=== PATIENT | female | born 1950 | race Caucasian/White ===

== ENCOUNTER 2022-02-26 13:01 | Inpatient (IN) ==
[2022-02-26] MEDS ORDERED: MAGNESIUM SULFATE 2 GM/50 ML BAG IV PRN (13:44)
[2022-02-26] MEDS ORDERED: DEXTROSE 31 GM ORAL.SUSP PO PRN (13:44)
[2022-02-26] MEDS ORDERED: DEXTROSE 50% 50 ML VIAL IV PRN (13:44)
[2022-02-26] MEDS ORDERED: POLYETHYLENE GLYCOL 3350 17 GM PACKET PO PRN (13:44)
[2022-02-26] MEDS ORDERED: ONDANSETRON 4 MG/2 ML VIAL IV PRN (13:44)
[2022-02-26] MEDS ORDERED: SENNOSIDES 1 TABLET PO PRN (13:44)
[2022-02-26] MEDS ORDERED: POTASSIUM CHLORIDE 40 MEQ in DEXTROSE 5% IN WATER 500 ML IV PRN (13:44)
[2022-02-26] MEDS ORDERED: POTASSIUM CHLORIDE 20 MEQ TABLET PO PRN ×2 (13:44)
--- NOTE | 2022-02-26 13:44 | Internal Med History&Physical ---
HPI History of Present Illness Patient information: Note initiated : 02/26/22 at 1:40 pm Service Date, if different from initiated Date: [] Patient: Joelle Almazan a 71 y/o F admitted on for Ankle Fracture. Chief Complaint: [] History of present illness: Ms. Almazan is a 71 year old F Presents to an outside facility after falling while walking up the stairs holding a cup of coffee, tripping. Immediate pain to the right ankle. She is found to have a severely comminuted right ankle fracture. Dr. Álvarez was contacted and patient was transferred to [facility]. Patient did have a drop in her blood pressures at the outside facility that was attributed to combination of volume depletion and 4mg IV morphine. Patient blood pressure responded to IV fluid boluses. Review of Systems: Positives as above. Denies headache/fever/chills/nausea/vomiting/chest or abdominal pain/cough/dyspnea/diarrhea. Remaining 10 point review of system reviewed negative PFSH PFSH All Active Problems (Updated 06/26/21 @ 13:29 by Elzbieta Vora) Other low back pain (Acute) Spinal stenosis, lumbar region with neurogenic claudication (Acute) Radiculopathy of lumbar region (Acute) History of tobacco use (Chronic) Sciatica (Chronic) Right hip pain (Chronic) RLS (restless legs syndrome) (Chronic) Postmenopausal HRT (hormone replacement therapy) (Chronic) Occlusion and stenosis of unspecified carotid artery (Chronic) Lumbar pain (Chronic) HTN (hypertension) (Chronic) GERD (gastroesophageal reflux disease) (Chronic) Female stress incontinence (Chronic) Familial hypercholesterolemia (Chronic) Diabetes mellitus, type II (Chronic) Atherosclerosis of [place] coronary artery (Chronic) Low back pain with radiation (Chronic) Medical History (Updated 06/26/21 @ 13:29 by Elzbieta Vora) Atherosclerosis of [place] coronary artery Diabetes mellitus, type II Familial hypercholesterolemia Female stress incontinence GERD (gastroesophageal reflux disease) History of tobacco use HTN (hypertension) Low back pain with radiation down right leg Lumbar pain Occlusion and stenosis of unspecified carotid artery Postmenopausal HRT (hormone replacement therapy) Right hip pain RLS (restless legs syndrome) Sciatica Surgical History (Updated 03/13/21 @ 15:30 by Jillian Do) History of appendectomy (~1971) History of colonoscopy (~12/2014) 07/15/2009 History of exploratory laparotomy History of hysterectomy (~1982) History of left heart catheterization History of neck surgery Family History (Updated 03/13/21 @ 15:31 by Jillian Do) Brother Alzheimer's disease Cancer Alcohol abuse Sister Cancer x2 Diabetes mellitus, type II x2 Alcohol abuse Father Myocardial infarction Alcohol abuse Mother Alcohol abuse Social History (Updated 03/13/21 @ 15:31 by Jillian Do) household members: spouse and family housing: house marital status: education level: high school occupational status: retired smoking status: Former smoker alcohol intake frequency: a few times a month substance use type: does not use MEDS/ALLERGIES Home Medications and Allergies Home Medications Medication Instructions Recorded Confirmed Type amitriptyline 25 mg tablet 25 mg PO QDAY 03/13/21 06/26/21 History aspirin 81 mg capsule 81 mg PO QDAY 03/13/21 06/26/21 History atorvastatin 40 mg tablet 40 mg PO QDAY 03/13/21 06/26/21 History celecoxib 200 mg capsule 200 mg PO QDAY 03/13/21 06/26/21 History cholecalciferol (vitamin D3) 75 75 mcg PO QDAY 03/13/21 06/26/21 History mcg (3,000 unit) tablet digoxin 125 mcg (0.125 mg) tablet 125 mcg PO QDAY 03/13/21 06/26/21 History diltiazem HCl 90 mg tablet 180 mg PO QDAY 03/13/21 06/26/21 History lisinopril 2.5 mg tablet 2.5 mg PO QDAY 03/13/21 06/26/21 History magnesium 30 mg tablet 30 mg PO QDAY 03/13/21 06/26/21 History metformin 500 mg tablet 500 mg PO BID 03/13/21 06/26/21 History metoprolol tartrate 25 mg tablet 25 mg PO QDAY 03/13/21 06/26/21 History omeprazole 10 mg capsule,delayed 10 mg PO QDAY 03/13/21 06/26/21 History release oxybutynin chloride 5 mg tablet 5 mg PO QDAY 03/13/21 06/26/21 History ropinirole 4 mg tablet 4 mg PO QDAY 03/13/21 06/26/21 History rivaroxaban 10 mg tablet (Xarelto) 10 mg PO QDAY 06/26/21 06/26/21 History Allergies Allergy/AdvReac Type Severity Reaction Status Date / Time Penicillins [PENICILLINS] Allergy Mild Rash Unverified 02/26/22 13:48 EXAM Constitutional Exam: General: Alert, Awake, No acute Distress, obesity Eyes/N/T: EOMI, PERRL, Head/Neck: neck supple, normocephalic atraumatic CV: RRR, No murmurs, normal s1/s2 Pulm: Clear b/l, no wheezing/rhonchi/rales Abd: soft, nontender, +BS x4 Ext: no clubbing/cyanosis/edema, right lower extremity in dressings and splint Neuro: Alert, no focal deficits, moves all extremities, CN 2-12 grossly intact, sensations intact b/l upper/lower Skin: warm/dry A/P Narrative A/P Narrative: A: *Right ankle fracture: *JACKLYN on CKD: *AFib, chronic: On digoxin/diltiazem/Xarelto *DM: *Obesity: BMI *CKD II: *Anemia, chronic: *HTN/HLD: on dilt/bb/acei *GERD: P: -Dr. Álvarez for orthopedic surgery -Pain control -IVF -Continue home digoxin/BB/diltiazem/acei if bp allows -SSI, hold metformin for now -Home medication reconciliation -PT/OT -ppx: SCDs and postop Xarelto when okay with surgery / home ppi Time Spent With Patient Time: Total time spent is greater than 50% in coordination of care (as documented) at patient's floor/unit and/or counseling patient:
[2022-02-26] MEDS ORDERED: 0.9 % SODIUM CHLORIDE 1,000 ML IV ONE (13:45)
[2022-02-26] MEDS: 0.9 % SODIUM CHLORIDE 10 ML SYRINGE IV SCH ×2 (15:56→20:56)
[2022-02-26] MEDS ORDERED: morphine 2 MG/ML VIAL IV PRN (16:12)
[2022-02-26] MEDS: INSULIN LISPRO 1 UNIT/0.01 ML UNIT SQ SCH ×2 (17:11→20:55)
[2022-02-26] MEDS ORDERED: ceFAZolin 2 GM in DEXTROSE 5% IN WATER 50 ML IV SCH (18:30)
[2022-02-26] MEDS: DOCUSATE SODIUM 100 MG CAPSULE PO SCH (20:55)
[2022-02-26] MEDS: HYDROmorphone 1 MG/ML SYRINGE IV PRN (21:12)
[2022-02-26] MEDS: METOPROLOL TARTRATE 5 MG/5 ML VIAL IV PRN (23:48)
[2022-02-27] MEDS: METOPROLOL TARTRATE 5 MG/5 ML VIAL IV SCH ×4 (01:04→01:18)
[2022-02-27] MEDS: METOPROLOL TARTRATE 5 MG/5 ML VIAL IV PRN ×3 (03:23→07:36)
[2022-02-27] MEDS: 0.9 % SODIUM CHLORIDE 10 ML SYRINGE IV SCH ×3 (06:07→21:20)
--- NOTE | 2022-02-27 06:44 | Consultation ---
DATE OF CONSULTATION: 02/26/2022 HISTORY OF PRESENT ILLNESS: A 71-year-old female with a same level fall when going up stairs, had a twisting injury to the ankle and sustained an immediate deformity, was seen in the emergency room and diagnosed with bimalleolar ankle fracture. She gives a good history of the event, did not lose consciousness, did not hit her head, has a bimalleolar ankle fracture dislocation that was treated with closed reduction and then transferred here to the hospital at [facility] for further care. She is on __xeralto__ that will need to be stopped at least 24 hours prior to any surgery, possible 48 hours. The patient is a moderate risk for cardiac event as she has atrial fibrillation. She is a 71-year-old female who cares for her and [id number]. The more recently had a kidney and stomach surgery. He denies headaches, nausea, or vomiting. PAST MEDICAL HISTORY: Significant for lower back pain, spinal stenosis with neurogenic claudication and radiculopathy, lumbar pain, chronic pain syndrome, diabetes type 2. MEDICATIONS: Includes amitriptyline, aspirin, atorvastatin, Celebrex, digoxin, lisinopril, metformin, magnesium, omeprazole. She does take Xarelto as a blood thinner. ALLERGIES: PENICILLIN CAUSES MILD RASH, NO SHORTNESS OF BREATH. PHYSICAL EXAMINATION: GENERAL: Very pleasant elderly 71-year-old female with excellent history of the events. Her pain is controlled and seems quite comfortable, is able to eat, drink without nausea or vomiting. EYES: Her extraocular movements intact. NECK: Supple, nontender. CARDIOVASCULAR: Regular rate and rhythm. No murmurs. Normal S1 and S2. PULMONARY: Clear to auscultation without rhonchi, rales or shortness of breath. ABDOMEN: Soft, nontender. EXTREMITIES: Right leg is in a posterior splint with good capillary refill. NEUROLOGIC: She moves her eyes without difficulty. Tongue is midline. SKIN: Warm. Good capillary refill into the foot. IMAGING: X-rays of the right ankle show right ankle bimalleolar ankle fracture with dislocation. ASSESSMENT AND PLAN: Time spent with the patient was approximately 15 minutes. Complications were none. Risks and benefits of the surgery were explained. We will try to proceed tomorrow afternoon that would probably be 30 hours as her last dose of Xarelto was last night, which is almost 24 hours at this point. We will proceed once time is available and surgery. RBH:sawyer Job ID: [id number] Doc ID: [id number] Allan Munoz MD [facility]
[2022-02-27 07:20] LABS: Basophils # (Auto) 0.07 K/mcL (0.00-0.30); Basophils % (Auto) 0.6 % (0.0-2.0); Eosinophils # (Auto) 0.16 K/mcL (0.00-0.70); Eosinophils % (Auto) 1.4 % (0.0-7.0); Hematocrit 36.6 % (34.1-44.9); Hemoglobin 11.1 g/dL (11.2-15.7); Lymphocytes # (Auto) 1.66 K/mcL (1.50-4.80); Lymphocytes % (Auto) 14.1 % (15.5-49.0); Mean Cell Volume 97.9 fL (80.0-100.0); Mean Corpuscular HGB Conc 30.3 g/dL (31.0-36.0); Mean Platelet Volume 10.9 fL (8.8-12.5); Monocytes # (Auto) 1.15 K/mcL (0.10-0.90); Monocytes % (Auto) 9.8 % (1.0-12.0); Neutrophils % (Auto) 73.3 % (38.0-78.0); Platelet Count 236 K/mcL (140-440); RBC 3.74 M/mcL (3.59-5.38); Red Cell Distribution Width 15.5 % (11.5-14.5); WBC 11.8 K/mcL (4.5-11.0)
[2022-02-27 07:50] LABS: ALT/SGPT 16 U/L (<40); AST/SGOT 19 U/L (<32); Albumin 4.1 gm/dL (3.2-5.2); Albumin/Globulin Ratio 1.3 (1.0-2.3); Alkaline Phosphatase 131 U/L (39-117); Bilirubin,Direct < 0.2 mg/dL (0-0.3); Bilirubin,Total 0.6 mg/dL (0.1-1.0); Blood Urea Nitrogen 23 mg/dL (8-23); Calcium 9.1 mg/dL (8.6-10.4); Carbon Dioxide 27 mmol/L (22-30); Chloride 106 mmol/L (96-108); Globulin 3.2 gm/dL (2.2-3.7); Glomerular Filtration Rate 45; Glucose 165 mg/dL (70-105); Lactate Dehydrogenase 204 U/L (135-225); Phosphorous 3.5 mg/dL (2.5-4.5); Triglycerides 117 mg/dL (<150); Uric Acid 12.2 mg/dL (2.5-8.0)
--- NOTE | 2022-02-27 08:22 | Internal Med Progress Note ---
SUBJECTIVE Subjective Patient information: Note initiated : 02/27/22 at 8:18 am Service Date, if different from initiated Date: [] Patient: Joelle Almazan a 71 y/o F admitted on 02/26/22 for Ankle Fracture-JACKLYN. Chief Complaint: [] Interval history: History of present illness: Ms. Almazan is a 71 year old F Presents to an outside facility after falling while walking up the stairs holding a cup of coffee, tripping. Immediate pain to the right ankle. She is found to have a severely comminuted right ankle fracture. Dr. Álvarez was contacted and patient was transferred to [facility]. Patient did have a drop in her blood pressures at the outside facility that was attributed to combination of volume depletion and 4mg IV morphine. Patient blood pressure responded to IV fluid boluses. 02/27 this morning she complained of ankle pain otherwise no other complaints. Testing was little elevated and her heart rate is elevated last night she got s everal doses of Lopressor. Ordered IV dig as she is n.p.o. if poorly controlled will start diltiazem drip. Later in the morning she developed left-sided chest pain under her left breast achy/pressure and nonradiating. EKG A. fib and difficult to read baseline but no ST elevation. Some nonspecific ST changes noted. Rate of 132. Troponin pending and chest x-ray pending. Review of Systems: denies headache/fever/chills/nausea/vomiting/abdominal pain/cough/dyspnea/diarrhea. Otherwise see above. Constitutional Vitals: Vital Signs Temp Pulse Resp BP Pulse Ox O2 Del Method O2 Flow Rate 98.6 F 127 H 14 116/78 95 2.5 02/27/22 07:47 02/27/22 07:47 02/27/22 07:47 02/27/22 07:47 02/27/22 07:47 02/27/22 07:47 02/27/22 07:47 Period Temp Pulse Resp BP Sys/Peralta Pulse Ox O2 Del Method O2 Flow Rate Last 24 Hr 97.7 F-98.6 F 89-137 - 111-162/77-107 91-97 Nasal Cannula- Nasal Cannula 2.5-3 Intake and Output 02/26/22 02/27/22 02/27/22 21:59 05:59 13:59 Intake Total 300 240 Output Total 310 1350 Balance -10 -1110 Weight 93.894 kg Intake & Output: Intake & Output 02/26/22 02/27/22 02/27/22 21:59 05:59 13:59 Intake Total 300 240 Output Total 310 1350 Balance -10 -1110 Weight 93.894 kg Intake: Oral 300 240 Output: Urine Catheter Amount 310 1350 Other: Meal Dinner Percent of Meal Consumed 100% Feeding Ability Independent Urine Appearance Uretheral (Rizzo) Clear Urine Color Yellow Uretheral (Rizzo) Yellow Pale Exam: General: Alert, Awake, , obesity Eyes/N/T: EOMI, , Head/Neck: neck supple, CV: Tacky and irregular, No murmurs, Pulm: Clear b/l, no wheezing/rhonchi/rales Abd: soft, nontender, +BS x4 Ext: no clubbing/cyanosis/edema, right lower extremity in dressings and splint Neuro: Alert, no focal deficits, moves all extremities, Skin: warm/dry OBJ DATA Labs CBC & Chem 7: 02/27/22 06:26 02/27/22 06:26 Labs: Abnormal Lab Results 02/27/22 02/27/22 06:26 06:26 WBC 11.8 H Hgb 11.1 L MCHC 30.3 L RDW 15.5 H Immature Gran % (Auto) 0.8 H Lymph % (Auto) 14.1 L Dodge # (Auto) 1.15 H Immature Gran # 0.09 H Absolute Neutrophils 8.66 H Potassium 5.5 H Creatinine 1.2 H Glucose 165 H Uric Acid 12.2 H GGT 39 H Alkaline Phosphatase 131 H Meds: Medications Hydrocodone Bitart/Acetaminophen (Hydrocodone/Apap 5/325mg Tablet) 1 tab PO Q4HP PRN; Protocol PRN Reason: Per Pain Protocol Albuterol/Ipratropium (Ipratropium/Albuterol 3 Ml Ampul.Neb) 3 ml NEB Q4HP PRN PRN Reason: Shortness Of Breath Dextrose (Dextrose 50% 50 Ml Vial) 0 ml IV UD PRN PRN Reason: Per Sliding Scale Diagnostic Test (Pha) (Accu-Chek 1 Each Strip) 1 each FS ACHS AZAR Last Admin: 02/26/22 20:55 Dose: 1 each Docusate Sodium (Docusate Sodium 100 Mg Capsule) 100 mg PO BID [facility] Last Admin: 02/26/22 20:55 Dose: 100 mg Glucose (Dextrose 31 Gm Oral.Susp) 15 gm PO PRN PRN PRN Reason: Hypoglycemia Hydromorphone HCl (Hydromorphone 1 Mg/Ml Syringe) 0 mg IV Q2HP PRN; Protocol PRN Reason: Per Pain Protocol Last Admin: 02/26/22 21:12 Dose: 1 mg Potassium Chloride 40 meq/ (Dextrose) 520 mls @ 130 mls/hr IV UD PRN PRN Reason: Potassium < 3 Magnesium Sulfate (Magnesium Sulfate) 2 gm in 50 mls @ 50 mls/hr IV UD PRN PRN Reason: Magnesium </= 1.6 Cefazolin Sodium 2 gm/ (Dextrose) 50 mls @ 100 mls/hr IV PREOP [facility]; Protocol Stop: 02/27/22 14:00 Last Admin: 02/27/22 01:23 Dose: Not Given Insulin Human Lispro (Insulin Lispro 1 Unit/0.01 Ml Unit) 0 unit SQ ACHS [facility]; Protocol Last Admin: 02/26/22 20:55 Dose: 2 units Metoprolol Tartrate (Metoprolol Tartrate 5 Mg/5 Ml Vial) 5 mg IV Q2HP PRN PRN Reason: Tachyarrhythmias HR>110 Last Admin: 02/27/22 07:36 Dose: 5 mg Ondansetron HCl (Ondansetron 4 Mg/2 Ml Vial) 4 mg IV Q4HP PRN PRN Reason: Nausea And Vomiting Last Admin: 02/26/22 16:48 Dose: 4 mg Polyethylene Glycol (Polyethylene Glycol 3350 17 Gm Packet) 17 gm PO DAILYP PRN PRN Reason: Constipation Potassium Chloride (Potassium Chloride 20 Meq Tablet) 40 meq PO UD PRN PRN Reason: Potssium is 3-3.5 Potassium Chloride (Potassium Chloride 20 Meq Tablet) 40 meq PO UD PRN PRN Reason: Potassium < 3 Scopolamine (Scopolamine 1 Patch Patch) 1 patch TOPICAL PREOP PRN PRN Reason: Nausea And Vomiting Stop: 02/27/22 23:59 Senna (Sennosides 1 Tablet) 2 tab PO DAILYP PRN PRN Reason: Constipation Sodium Chloride (0.9 % Sodium Chloride 10 Ml Syringe) 10 ml IV Q8 [facility] Last Admin: 02/27/22 06:07 Dose: Not Given A/P Narrative A/P Narrative: A: *AFib w/RVR, chronic: On digoxin/diltiazem/Xarelto - *Right ankle fracture: *JACKLYN on CKD: *h/o CAD: on statin/rivaroxaban -SPECT in January with good EF and was low risk study *Hyperkalemia, mild: treat and follow-up prior to surgery *Volume depletion: *JACKLYN on CKD III: *DM: *Obesity: BMI *CKD II: *Anemia, chronic: *HTN/HLD: on dilt/bb/acei *GERD: P: -transfer back to PCU, troponin and cxr pending -rate control -f/u potassium -Dr. Álvarez for orthopedic surgery -Pain control -tele -IVF, f/u renal -Continue home digoxin/BB/diltiazem, hold acei for hyperkalemia/jacklyn -SSI, hold metformin for now -PT/OT -ppx: SCDs and postop Xarelto when okay with surgery / home ppi Time Spent With Patient Time: Total time spent is greater than 50% in coordination of care (as documented) at patient's floor/unit and/or counseling patient: Critical Care Time: Yes Total Critical Care Time: 45 QUALITY VTE Deep Vein Thrombosis/Pulmonary Embolism Present on Admission: No
[2022-02-27] MEDS ORDERED: 0.9 % SODIUM CHLORIDE 1,000 ML IV ONE (08:25)
[2022-02-27] MEDS ORDERED: DIGOXIN 500 MCG/2 ML AMPUL IV SCH (08:30)
[2022-02-27] MEDS ORDERED: INSULIN REGULAR, HUMAN 1 UNIT/0.01 ML UNIT IV SCH (08:30)
[2022-02-27] MEDS ORDERED: DEXTROSE 50% 50 ML VIAL IV SCH (08:30)
[2022-02-27] MEDS: DOCUSATE SODIUM 100 MG CAPSULE PO SCH ×2 (08:37→20:27)
[2022-02-27] MEDS: INSULIN LISPRO 1 UNIT/0.01 ML UNIT SQ SCH ×4 (08:48→21:18)
[2022-02-27] MEDS ORDERED: ASPIRIN 81 MG TAB.CHEW CHEWED ONE (09:17)
[2022-02-27] MEDS ORDERED: NITROGLYCERIN 0.4 MG TAB.SUBL SL PRN (09:17)
[2022-02-27] MEDS: HYDROmorphone 1 MG/ML SYRINGE IV PRN ×4 (09:18→19:42)
[2022-02-27] MEDS ORDERED: DEXTROSE 50% 50 ML SYRINGE IV SCH (09:20)
[2022-02-27] MEDS: DILTIAZEM 180 MG CAP.XL.24H PO SCH (09:24)
[2022-02-27] MEDS ORDERED: 0.9 % SODIUM CHLORIDE 1,000 ML IV SCH (09:30)
--- NOTE | 2022-02-27 09:41 | XRay Report ---
CLINICAL INFORMATION: Chest pain COMPARISON: None. TECHNIQUE: Portable FINDINGS: The heart is mildly enlarged. Mediastinum and pulmonary vessels are normal. Minor bibasilar atelectasis noted. No effusion. IMPRESSION: Mild cardiomegaly. No acute disease Interpreted and Authenticated by: Grayson Ramos 02/27/22
--- NOTE | 2022-02-27 09:57 | EKG ---
[facility] Test Date: 2022-02-27 Pat Name: Joelle Almazan Department: [facility] Room: 126 Gender: Female Cardroom Pl[employer] Card Grader: : [id number] Requested By: Ponce Barrett Order Number: [id number] Reading MD: Grayson Valverde M.D. Measurements Intervals Hugo Rate: 132 P: DE: QRS: 83 QRSD: 97 T: -25 QT: 247 QTc: 366 Interpretive Statements Atrial fibrillation with RVR Ventricular premature complex Low voltage, extremity and precordial leads Abnormal R-wave progression, late transition Borderline ST depression, diffuse leads Electronically Signed On 02-27-2022 9:56:45 PDT by Grayson Valverde M.D. /[facility] [place]//[id number]
[2022-02-27 10:09] LABS: Basophils # (Auto) 0.05 K/mcL (0.00-0.30); Basophils % (Auto) 0.5 % (0.0-2.0); Eosinophils # (Auto) 0.06 K/mcL (0.00-0.70); Eosinophils % (Auto) 0.6 % (0.0-7.0); Hematocrit 34.6 % (34.1-44.9); Hemoglobin 10.4 g/dL (11.2-15.7); Lymphocytes # (Auto) 1.17 K/mcL (1.50-4.80); Lymphocytes % (Auto) 10.8 % (15.5-49.0); Mean Corpuscular HGB Conc 30.1 g/dL (31.0-36.0); Mean Platelet Volume 11.3 fL (8.8-12.5); Monocytes % (Auto) 4.6 % (1.0-12.0); Neutrophils % (Auto) 82.9 % (38.0-78.0); Platelet Count 226 K/mcL (140-440); RBC 3.53 M/mcL (3.59-5.38); Red Cell Distribution Width 15.6 % (11.5-14.5); WBC 10.8 K/mcL (4.5-11.0)
[2022-02-27] MEDS: METOPROLOL SUCCINATE 50 MG TAB.XL.24H PO SCH ×2 (10:24→20:27)
[2022-02-27 10:48] LABS: Creatine Kinase MB 2.1 ng/mL (<3.7)
[2022-02-27 10:49] LABS: ALT/SGPT 15 U/L (<40); AST/SGOT 18 U/L (<32); Albumin 4.1 gm/dL (3.2-5.2); Albumin/Globulin Ratio 1.2 (1.0-2.3); Alkaline Phosphatase 124 U/L (39-117); Bilirubin,Total 0.7 mg/dL (0.1-1.0); Blood Urea Nitrogen 24 mg/dL (8-23); Calcium 9.6 mg/dL (8.6-10.4); Carbon Dioxide 25 mmol/L (22-30); Chloride 107 mmol/L (96-108); Creatine Kinase 166 U/L (24-170); Globulin 3.4 gm/dL (2.2-3.7); Glomerular Filtration Rate 45; Glucose 185 mg/dL (70-105)
[2022-02-27] MEDS ORDERED: ASPIRIN 81 MG TAB.CHEW PO ONE (11:00)
[2022-02-27] MEDS: CYCLOSPORINE 0.05% OP SCH (11:06)
[2022-02-27] MEDS: OMEPRAZOLE 20 MG CAPSULE PO SCH (11:19)
[2022-02-27] MEDS: OXYBUTYNIN CHLORIDE 5 MG TABLET PO SCH ×2 (11:20→20:26)
[2022-02-27] MEDS: GABAPENTIN 100 MG CAPSULE PO SCH ×3 (11:20→20:27)
[2022-02-27] MEDS: rOPINIRole 1 MG TABLET PO SCH (11:20)
[2022-02-27] MEDS: DILTIAZEM 125 MG in DEXTROSE 5% IN WATER 100 ML IV SCH ×2 (11:26→20:29)
[2022-02-27] MEDS: BACLOFEN 10 MG TABLET PO PRN ×2 (11:59→20:27)
[2022-02-27] MEDS ORDERED: SCOPOLAMINE 1 PATCH PATCH TOPICAL PRN (12:00)
[2022-02-27] MEDS ORDERED: ENOXAPARIN 100 MG/ML SYRINGE SQ SCH (12:00)
[2022-02-27 12:56] LABS: POC Calcium, Ionized 1.26 (1.16-1.32); POC Creatinine 1.2 (0.6-1.2); POC Potassium 4.9 (3.3-5.1)
[2022-02-27] MEDS ORDERED: DEXTROSE 5% IN WATER 250 ML IV ONE (13:43)
[2022-02-27] MEDS ORDERED: HYDROmorphone 1 MG/ML SYRINGE IV PRN (14:03)
[2022-02-27] MEDS: HYDROcodone/APAP 5/325MG TABLET PO PRN ×2 (15:31→20:26)
[2022-02-27] MEDS: AMITRIPTYLINE 25 MG TABLET PO SCH (20:27)
[2022-02-27] MEDS: ATORVASTATIN 40 MG TABLET PO SCH (20:27)
[2022-02-28] MEDS: HYDROmorphone 1 MG/ML SYRINGE IV PRN ×2 (03:20→06:43)
[2022-02-28] MEDS: 0.9 % SODIUM CHLORIDE 10 ML SYRINGE IV SCH ×5 (05:26→23:23)
[2022-02-28 06:45] LABS: Basophils # (Auto) 0.05 K/mcL (0.00-0.30); Basophils % (Auto) 0.4 % (0.0-2.0); Eosinophils # (Auto) 0.07 K/mcL (0.00-0.70); Eosinophils % (Auto) 0.6 % (0.0-7.0); Hematocrit 34.5 % (34.1-44.9); Hemoglobin 10.5 g/dL (11.2-15.7); Lymphocytes # (Auto) 1.04 K/mcL (1.50-4.80); Lymphocytes % (Auto) 8.4 % (15.5-49.0); Mean Corpuscular HGB Conc 30.4 g/dL (31.0-36.0); Mean Platelet Volume 11.7 fL (8.8-12.5); Monocytes # (Auto) 1.22 K/mcL (0.10-0.90); Monocytes % (Auto) 9.9 % (1.0-12.0); Neutrophils % (Auto) 79.9 % (38.0-78.0); Platelet Count 180 K/mcL (140-440); RBC 3.52 M/mcL (3.59-5.38); Red Cell Distribution Width 15.4 % (11.5-14.5); WBC 12.4 K/mcL (4.5-11.0)
[2022-02-28 07:11] LABS: ALT/SGPT 13 U/L (<40); AST/SGOT 17 U/L (<32); Albumin 3.7 gm/dL (3.2-5.2); Albumin/Globulin Ratio 1.2 (1.0-2.3); Alkaline Phosphatase 115 U/L (39-117); Bilirubin,Direct 0.5 mg/dL (<0.3); Bilirubin,Total 1.1 mg/dL (0.1-1.0); Blood Urea Nitrogen 20 mg/dL (8-23); Calcium 9.7 mg/dL (8.6-10.4); Carbon Dioxide 28 mmol/L (22-30); Chloride 107 mmol/L (96-108); Globulin 3.1 gm/dL (2.2-3.7); Glomerular Filtration Rate 56; Glucose 170 mg/dL (70-105); Lactate Dehydrogenase 179 U/L (135-225); Triglycerides 100 mg/dL (<150)
--- NOTE | 2022-02-28 08:13 | Internal Med Progress Note ---
SUBJECTIVE Subjective Patient information: Note initiated : 02/28/22 at 8:11 am Service Date, if different from initiated Date: [] Patient: Joelle Almazan a 71 y/o F admitted on 02/26/22 for Ankle Fracture-JACKLYN. Chief Complaint: [] Interval history: History of present illness: Ms. Almazan is a 71 year old F Presents to an outside facility after falling while walking up the stairs holding a cup of coffee, tripping. Immediate pain to the right ankle. She is found to have a severely comminuted right ankle fracture. Dr. Álvarez was contacted and patient was transferred to [facility]. Patient did have a drop in her blood pressures at the outside facility that was attributed to combination of volume depletion and 4mg IV morphine. Patient blood pressure responded to IV fluid boluses. 02/27 this morning she complained of ankle pain otherwise no other complaints. Testing was little elevated and her heart rate is elevated last night she got s everal doses of Lopressor. Ordered IV dig as she is n.p.o. if poorly controlled will start diltiazem drip. Later in the morning she developed left-sided chest pain under her left breast achy/pressure and nonradiating. EKG A. fib and difficult to read baseline but no ST elevation. Some nonspecific ST changes noted. Rate of 132. Troponin pending and chest x-ray pending. 02/28 Patient on BiPAP overnight for CO2 retention likely secondary to sedation. Patient seems to be externally really sensitive to narcotics. DC'd low-dose Dilaudid altogether. We will try IV Tylenol and as needed [place]'s if still uncontrolled. A. fib rate better controlled. Potassium improved as well as hyponatremia. Review of Systems: denies headache/fever/chills/nausea/vomiting/abdominal pain/cough/dyspnea/diar sin. Otherwise see above. Constitutional Vitals: Vital Signs Temp Pulse Resp BP Pulse Ox O2 Del Method O2 Flow Rate 98.2 F 94 H 14 100/67 89 L 2 02/28/22 04:00 02/28/22 07:01 02/28/22 07:01 02/28/22 07:01 02/28/22 07:01 02/28/22 05:01 02/27/22 11:31 Period Temp Pulse Resp BP Sys/Peralta Pulse Ox O2 Del Method O2 Flow Rate Last 24 Hr 97.0 F-98.5 F 62-145 10-25 75-132/38-81 82-100 BiPAP-Oxymask 2-5 Intake and Output 02/27/22 02/28/22 02/28/22 21:59 05:59 13:59 Intake Total 1280 Output Total 775 850 Balance 505 -850 Weight 93.123 kg Intake & Output: Intake & Output 02/27/22 02/28/22 02/28/22 21:59 05:59 13:59 Intake Total 1280 Output Total 775 850 Balance 505 -850 Weight 93.123 kg Intake: IV 800 Sodium Chloride 0.9% 1,000 ml @ 550 100 mls/hr IV .Q10H ONE Rx#: [id number] Dextrose 5% in Water 250 ml @ 250 100 mls/hr IV .Q2H30M ONE Rx#: [id number] Oral 480 Output: Urine Catheter Amount 775 850 Other: Urine Appearance Clear Clear Urine Color Dark Yellow Light Rama Urine Odor Normal Exam: General: Awakens, no acute distress, obesity Eyes/N/T: EOMI, , Head/Neck: neck supple, CV: irregular, No murmurs, Pulm: mild rhonchi, no wheezing Abd: soft, nontender, +BS x4 Ext: no clubbing/cyanosis/edema, right lower extremity in dressings and splint Neuro: Drowsy but awakens no focal deficits, moves all extremities, Skin: warm/dry OBJ DATA Labs CBC & Chem 7: 02/28/22 05:30 02/28/22 05:30 Labs: Abnormal Lab Results 02/28/22 02/28/22 02/27/22 05:30 05:30 14:17 WBC 12.4 H RBC 3.52 L Hgb 10.5 L POC Hct MCHC 30.4 L RDW 15.4 H Immature Gran % (Auto) 0.8 H Neut % (Auto) 79.9 H Lymph % (Auto) 8.4 L Lymph # (Auto) 1.04 L Cottle # (Auto) 1.22 H Immature Gran # 0.10 H Absolute Neutrophils 9.89 H POC pH 7.25 L POC pCO2 70.8 H* POC pO2 76 L POC HCO3 31.0 H POC Total CO2 33.0 H POC ABG Base Excess 4.0 H ABG Lactic Acid 0.4 L Hgb O2 Saturation 92.0 L POC Sodium Potassium Anion Gap 7.0 L POC BUN BUN Creatinine Glucose 170 H POC Glucose Uric Acid 11.0 H Total Bilirubin 1.1 H Direct Bilirubin 0.5 H GGT 40 H Alkaline Phosphatase 02/27/22 02/27/22 02/27/22 12:42 10:17 09:39 WBC RBC Hgb POC Hct 32.0 L MCHC RDW Immature Gran % (Auto) Neut % (Auto) Lymph % (Auto) Lymph # (Auto) Cottle # (Auto) Immature Gran # Absolute Neutrophils POC pH 7.22 L POC pCO2 71.9 H* POC pO2 76 L POC HCO3 29.7 H POC Total CO2 32.0 H POC ABG Base Excess ABG Lactic Acid Hgb O2 Saturation 91.0 L POC Sodium 146 H Potassium 5.3 H Anion Gap POC BUN 26 H BUN 24 H Creatinine 1.2 H Glucose 185 H POC Glucose 139 H Uric Acid Total Bilirubin Direct Bilirubin GGT Alkaline Phosphatase 124 H 02/27/22 02/27/22 02/27/22 09:17 06:26 06:26 WBC 11.8 H RBC 3.53 L Hgb 10.4 L 11.1 L POC Hct MCHC 30.1 L 30.3 L RDW 15.6 H 15.5 H Immature Gran % (Auto) 0.6 H 0.8 H Neut % (Auto) 82.9 H Lymph % (Auto) 10.8 L 14.1 L Lymph # (Auto) 1.17 L Cottle # (Auto) 1.15 H Immature Gran # 0.07 H 0.09 H Absolute Neutrophils 8.95 H 8.66 H POC pH POC pCO2 POC pO2 POC HCO3 POC Total CO2 POC ABG Base Excess ABG Lactic Acid Hgb O2 Saturation POC Sodium Potassium 5.5 H Anion Gap POC BUN BUN Creatinine 1.2 H Glucose 165 H POC Glucose Uric Acid 12.2 H Total Bilirubin Direct Bilirubin GGT 39 H Alkaline Phosphatase 131 H Meds: Medications Hydrocodone Bitart/Acetaminophen (Hydrocodone/Apap 5/325mg Tablet) 1 tab PO Q4HP PRN; Protocol PRN Reason: Per Pain Protocol Last Admin: 02/27/22 20:26 Dose: 1 tab Albuterol/Ipratropium (Ipratropium/Albuterol 3 Ml Ampul.Neb) 3 ml NEB Q4HP PRN PRN Reason: Shortness Of Breath Amitriptyline HCl (Amitriptyline 25 Mg Tablet) 25 mg PO HS [facility] Last Admin: 02/27/22 20:27 Dose: 25 mg Atorvastatin Calcium (Atorvastatin 40 Mg Tablet) 40 mg PO HS [facility] Last Admin: 02/27/22 20:27 Dose: 40 mg Baclofen (Baclofen 10 Mg Tablet) 10 mg PO TIDP PRN PRN Reason: Muscle Spasm Last Admin: 02/27/22 20:27 Dose: 10 mg Dextrose (Dextrose 50% 50 Ml Vial) 0 ml IV UD PRN PRN Reason: Per Sliding Scale Diagnostic Test (Pha) (Accu-Chek 1 Each Strip) 1 each FS ACHS [facility] Last Admin: 02/28/22 07:12 Dose: 1 each Digoxin (Digoxin 125 Mcg Tablet) 125 mcg PO QDAY AZAR Diltiazem HCl (Diltiazem 180 Mg Cap.Xl.24h) 180 mg PO QDAY [facility] Last Admin: 02/27/22 09:24 Dose: 180 mg Docusate Sodium (Docusate Sodium 100 Mg Capsule) 100 mg PO BID [facility] Last Admin: 02/27/22 20:27 Dose: 100 mg Gabapentin (Gabapentin 100 Mg Capsule) 100 mg PO TID [facility] Last Admin: 02/27/22 20:27 Dose: 100 mg Glucose (Dextrose 31 Gm Oral.Susp) 15 gm PO PRN PRN PRN Reason: Hypoglycemia Hydromorphone HCl (Hydromorphone 1 Mg/Ml Syringe) 0 mg IV Q2HP PRN; Protocol PRN Reason: Per Pain Protocol Last Admin: 02/28/22 06:43 Dose: 0.25 mg Potassium Chloride 40 meq/ (Dextrose) 520 mls @ 130 mls/hr IV UD PRN PRN Reason: Potassium < 3 Magnesium Sulfate (Magnesium Sulfate) 2 gm in 50 mls @ 50 mls/hr IV UD PRN PRN Reason: Magnesium </= 1.6 Diltiazem HCl 125 mg/ Dextrose 125 mls @ 5 mls/hr IV Q12H [facility]; Protocol Last Admin: 02/27/22 20:29 Dose: Not Given Insulin Human Lispro (Insulin Lispro 1 Unit/0.01 Ml Unit) 0 unit SQ ACHS [facility]; Protocol Last Admin: 02/27/22 21:18 Dose: Not Given Lisinopril (Lisinopril 10 Mg Tablet) 10 mg PO DAILY [facility] Metoprolol Succinate (Metoprolol Succinate 50 Mg Tab.Xl.24h) 100 mg PO BID [facility] Last Admin: 02/27/22 20:27 Dose: 100 mg Metoprolol Tartrate (Metoprolol Tartrate 5 Mg/5 Ml Vial) 5 mg IV Q2HP PRN PRN Reason: Tachyarrhythmias HR>110 Last Admin: 02/27/22 07:36 Dose: 5 mg Nitroglycerin (Nitroglycerin 0.4 Mg Tab.Subl) 0.4 mg SL Q5M PRN PRN Reason: Chest Pain Last Admin: 02/27/22 09:25 Dose: 0.4 mg Omeprazole (Omeprazole 20 Mg Capsule) 40 mg PO QDAY [facility] Last Admin: 02/27/22 11:19 Dose: 40 mg Ondansetron HCl (Ondansetron 4 Mg/2 Ml Vial) 4 mg IV Q4HP PRN PRN Reason: Nausea And Vomiting Last Admin: 02/26/22 16:48 Dose: 4 mg Oxybutynin Chloride (Oxybutynin Chloride 5 Mg Tablet) 5 mg PO BID [facility] Last Admin: 02/27/22 20:26 Dose: 5 mg (Cyclosporine [ (Restasis] 0.05 %) 1 dose OP DAILY [facility] Last Admin: 02/27/22 11:06 Dose: Not Given Polyethylene Glycol (Polyethylene Glycol 3350 17 Gm Packet) 17 gm PO DAILYP PRN PRN Reason: Constipation Potassium Chloride (Potassium Chloride 20 Meq Tablet) 40 meq PO UD PRN PRN Reason: Potssium is 3-3.5 Potassium Chloride (Potassium Chloride 20 Meq Tablet) 40 meq PO UD PRN PRN Reason: Potassium < 3 Ropinirole HCl (Ropinirole 1 Mg Tablet) 4 mg PO QDAY [facility] Last Admin: 02/27/22 11:20 Dose: 4 mg Senna (Sennosides 1 Tablet) 2 tab PO DAILYP PRN PRN Reason: Constipation Last Admin: 02/27/22 15:31 Dose: 2 tab Sodium Chloride (0.9 % Sodium Chloride 10 Ml Syringe) 10 ml IV Q8 [facility] Last Admin: 02/28/22 05:26 Dose: 10 ml A/P Narrative A/P Narrative: A: *AFib w/RVR, chronic: On digoxin/diltiazem/Xarelto - *Hypercapnia: suspect from sedation -on bipap o/n *Right ankle fracture: *JACKLYN on CKD: improved *h/o CAD: on statin/rivaroxaban -SPECT in January with good EF and was low risk study *Hyperkalemia, mild: treat and follow-up prior to surgery -improved *Volume depletion: improved *JACKLYN on CKD III: *DM: *Obesity: BMI *CKD II: *Anemia, chronic: *HTN/HLD: on dilt/bb/acei *GERD: P: -f/u ABG and remove bipap if appropriate -f/u electrolytes -Dr. Álvarez for orthopedic surgery -Pain control -tele -s/p IVF, f/u renal -Continue home digoxin/BB/diltiazem, hold acei for hyperkalemia/jacklyn and soft BP -SSI, hold metformin for now -PT/OT -ppx: SCDs and postop Xarelto when okay with surgery / home ppi Time Spent With Patient Time: Total time spent is greater than 50% in coordination of care (as documented) at patient's floor/unit and/or counseling patient: Total time spent with greater than 50% in coordination of care (as documented) at patient's floor/unit and/or counseling patient:: 35 - 50 minutes QUALITY VTE Deep Vein Thrombosis/Pulmonary Embolism Present on Admission: No
[2022-02-28] MEDS: INSULIN LISPRO 1 UNIT/0.01 ML UNIT SQ SCH ×4 (08:38→21:20)
[2022-02-28] MEDS: DILTIAZEM 125 MG in DEXTROSE 5% IN WATER 100 ML IV SCH (08:39)
[2022-02-28] MEDS: ACETAMINOPHEN 1,000 MG/100 ML BAG IV PRN ×2 (09:16→16:54)
[2022-02-28] MEDS ORDERED: 0.9 % SODIUM CHLORIDE 1,000 ML IV ONE (09:52)
[2022-02-28] MEDS: HYDROcodone/APAP 5/325MG TABLET PO PRN ×2 (10:16→18:59)
[2022-02-28] MEDS: DIGOXIN 125 MCG TABLET PO SCH (11:14)
[2022-02-28] MEDS: OXYBUTYNIN CHLORIDE 5 MG TABLET PO SCH ×2 (11:14→20:41)
[2022-02-28] MEDS: GABAPENTIN 100 MG CAPSULE PO SCH ×3 (11:14→20:42)
[2022-02-28] MEDS: DILTIAZEM 180 MG CAP.XL.24H PO SCH (11:14)
[2022-02-28] MEDS: DOCUSATE SODIUM 100 MG CAPSULE PO SCH ×2 (11:14→20:41)
[2022-02-28] MEDS: LISINOPRIL 10 MG TABLET PO SCH (11:15)
[2022-02-28] MEDS: rOPINIRole 1 MG TABLET PO SCH ×2 (11:15→21:35)
[2022-02-28] MEDS: METOPROLOL SUCCINATE 50 MG TAB.XL.24H PO SCH ×2 (11:15→20:41)
[2022-02-28] MEDS: OMEPRAZOLE 20 MG CAPSULE PO SCH (11:15)
[2022-02-28] MEDS: CYCLOSPORINE 0.05% OP SCH (11:15)
[2022-02-28] MEDS ORDERED: ceFAZolin 2 GM in DEXTROSE 5% IN WATER 50 ML IV SCH (13:15)
[2022-02-28] MEDS ORDERED: ROPIVACAINE HCL/PF 20 ML VIAL IJ ONE (13:25)
[2022-02-28] MEDS ORDERED: ONDANSETRON 4 MG/2 ML VIAL ONE (13:25)
[2022-02-28] MEDS ORDERED: MAGNESIUM SULFATE 2 GM/50 ML BAG IV ONE (13:25)
[2022-02-28] MEDS ORDERED: KETAMINE 50 MG/ML Syringe (ANEST) IV ONE (13:25)
[2022-02-28] MEDS ORDERED: fentaNYL 100 MCG/2 ML VIAL IV ONE (13:25)
[2022-02-28] MEDS ORDERED: PROPOFOL 200 MG/20 ML VIAL IV ONE (13:25)
[2022-02-28] MEDS ORDERED: LIDOCAINE HCL/PF 100 MG/5 ML SYRINGE IV ONE (13:25)
[2022-02-28] MEDS ORDERED: DEXAMETHASONE 10 MG/ML VIAL ONE (13:25)
[2022-02-28] MEDS ORDERED: METOPROLOL TARTRATE 5 MG/5 ML VIAL IV ONE (13:25)
[2022-02-28] MEDS ORDERED: KETOROLAC 30 MG/ML VIAL IV PRN (14:03)
[2022-02-28] MEDS ORDERED: ONDANSETRON 4 MG/2 ML VIAL IV PRN (14:03)
[2022-02-28] MEDS ORDERED: diphenhydrAMINE 50 MG/ML VIAL IV PRN (14:03)
[2022-02-28] MEDS ORDERED: MEPERIDINE 25 MG/ML VIAL IV PRN (14:03)
[2022-02-28] MEDS ORDERED: IPRATROPIUM/ALBUTEROL 3 ML AMPUL.NEB NEB PRN (14:03)
[2022-02-28] MEDS ORDERED: LACTATED RINGERS 250 ML IV PRN (14:03)
[2022-02-28] MEDS ORDERED: fentaNYL 100 MCG/2 ML VIAL IV PRN (14:03)
[2022-02-28] MEDS ORDERED: NALOXONE HCL 0.4 MG/ML VIAL IV PRN (14:03)
[2022-02-28] MEDS ORDERED: PROMETHAZINE 25 MG/ML VIAL IV PRN (14:03)
[2022-02-28] MEDS ORDERED: LACTATED RINGERS 1,000 ML IV SCH (14:15)
[2022-02-28] MEDS ORDERED: DILTIAZEM 125 MG in DEXTROSE 5% IN WATER 100 ML IV PRN (14:30)
--- NOTE | 2022-02-28 14:55 | Brief Operative Note ---
Brief Operative Note Date of procedure: 02/28/22 Pre-op diagnosis: Right ankle fx dislocation bimalleolar fx Post-op diagnosis: same Procedure: Right ankle bimallelar orif with syndesmosis screw fix Grafts/Implants: Yes Anesthesia: GETA Findings: above Complications: none Surgeon: Allan Munoz [employer] Underwriter: Arun Arechiga Estimated blood loss (cc): 10 Tourniquet Time (Minutes): 45 Specimens Removed/Pathology: none sent Condition: stable Disposition: PACU
--- NOTE | 2022-02-28 15:40 | XRay Report ---
CLINICAL INFORMATION: ORIF trimalleolar fracture COMPARISON: Preoperative films 02/26/2022 FINDINGS: Spiral fracture of the distal fibular diaphysis with extension to the lateral malleolus as been reduced to anatomic alignment and transfixed by lateral plate and screws. A screw extends across the distal fibula through the syndesmosis into the tibia with stabilization. Two screws transfix a medial malleolar fracture which has been reduced to anatomic alignment. Ankle mortise is congruent with small effusion. IMPRESSION: ORIF malleolar fracture in anatomic alignment Interpreted and Authenticated by: Grayson Ramos 02/28/22
[2022-02-28] MEDS: METOPROLOL TARTRATE 5 MG/5 ML VIAL IV PRN (16:51)
[2022-02-28] MEDS: IPRATROPIUM/ALBUTEROL 3 ML AMPUL.NEB NEB PRN (18:34)
[2022-02-28] MEDS: ceFAZolin 1 GM VIAL IV SCH (20:40)
[2022-02-28] MEDS: AMITRIPTYLINE 25 MG TABLET PO SCH (20:41)
[2022-02-28] MEDS: ATORVASTATIN 40 MG TABLET PO SCH (20:42)
[2022-02-28] MEDS: BACLOFEN 10 MG TABLET PO PRN (21:09)
[2022-03-01] MEDS: 0.9 % SODIUM CHLORIDE 10 ML SYRINGE IV SCH ×5 (05:43→21:50)
[2022-03-01] MEDS: ceFAZolin 1 GM VIAL IV SCH (05:46)
[2022-03-01] MEDS: ACETAMINOPHEN 1,000 MG/100 ML BAG IV PRN ×2 (07:09→14:08)
[2022-03-01 07:15] LABS: ALT/SGPT 17 U/L (<40); AST/SGOT 35 U/L (<32); Albumin 3.1 gm/dL (3.2-5.2); Albumin/Globulin Ratio 0.9 (1.0-2.3); Alkaline Phosphatase 111 U/L (39-117); Bilirubin,Direct 0.2 mg/dL (<0.3); Bilirubin,Total 0.5 mg/dL (0.1-1.0); Blood Urea Nitrogen 25 mg/dL (8-23); Calcium 9.4 mg/dL (8.6-10.4); Carbon Dioxide 26 mmol/L (22-30); Chloride 105 mmol/L (96-108); Globulin 3.5 gm/dL (2.2-3.7); Glomerular Filtration Rate 56; Glucose 183 mg/dL (70-105); Lactate Dehydrogenase 326 U/L (135-225); Phosphorous 2.5 mg/dL (2.5-4.5); Triglycerides 86 mg/dL (<150); Uric Acid 9.7 mg/dL (2.5-8.0)
[2022-03-01] MEDS ORDERED: SODIUM POLYSTYRENE SULFONATE 15 GM/60 ML SUSPENSION PO ONE (07:30)
[2022-03-01 07:34] LABS: Hematocrit 32.5 % (34.1-44.9); Hemoglobin 9.9 g/dL (11.2-15.7); Mean Cell Volume 99.4 fL (80.0-100.0); Mean Corpuscular HGB Conc 30.5 g/dL (31.0-36.0); Mean Platelet Volume 11.5 fL (8.8-12.5); Platelet Count 171 K/mcL (140-440); RBC 3.27 M/mcL (3.59-5.38); Red Cell Distribution Width 14.7 % (11.5-14.5); WBC 12.5 K/mcL (4.5-11.0)
--- NOTE | 2022-03-01 07:36 | Internal Med Progress Note ---
SUBJECTIVE Subjective Patient information: Note initiated : 03/01/22 at 7:28 am Service Date, if different from initiated Date: [] Patient: Joelle Almazan a 71 y/o F admitted on 02/26/22 for Ankle Fracture-JACKLYN. Chief Complaint: [] Interval history: History of present illness: Ms. Almazan is a 71 year old F Presents to an outside facility after falling while walking up the stairs holding a cup of coffee, tripping. Immediate pain to the right ankle. She is found to have a severely comminuted right ankle fracture. Dr. Álvarez was contacted and patient was transferred to [facility]. Patient did have a drop in her blood pressures at the outside facility that was attributed to combination of volume depletion and 4mg IV morphine. Patient blood pressure responded to IV fluid boluses. 02/27 this morning she complained of ankle pain otherwise no other complaints. Testing was little elevated and her heart rate is elevated last night she got s everal doses of Lopressor. Ordered IV dig as she is n.p.o. if poorly controlled will start diltiazem drip. Later in the morning she developed left-sided chest pain under her left breast achy/pressure and nonradiating. EKG A. fib and difficult to read baseline but no ST elevation. Some nonspecific ST changes noted. Rate of 132. Troponin pending and chest x-ray pending. 02/28 Patient on BiPAP overnight for CO2 retention likely secondary to sedation. Patient seems to be externally really sensitive to narcotics. DC'd low-dose Dilaudid altogether. We will try IV Tylenol and as needed [place]'s if still uncontrolled. A. fib rate better controlled. Potassium improved as well as hyponatremia. 03/01 Patient on oxygen overnight. This morning I took her off oxygen and she satting low 90s and room air. She has poor effort on incentive spirometry and will continue working with her on that. Status post ORIF yesterday. A. fib rate controlled. Borderline elevated hyperkalemia. Review of Systems: denies headache/fever/chills/nausea/vomiting/abdominal pain/cough/dyspnea/diarrhea. Otherwise see above. Constitutional Vitals: Vital Signs Temp Pulse Resp BP Pulse Ox O2 Del Method O2 Flow Rate 97.8 F 85 19 119/81 94 1 03/01/22 00:01 03/01/22 06:01 03/01/22 06:01 03/01/22 06:01 03/01/22 06:01 03/01/22 06:01 03/01/22 06:01 Period Temp Pulse Resp BP Sys/Peralta Pulse Ox O2 Del Method O2 Flow Rate Last 24 Hr 97.2 F-98.1 F 72-170 03-20 91-150/59-117 89-100 Nasal Cannula- Simple Mask 1-9 Intake and Output 02/28/22 03/01/22 03/01/22 22:59 05:59 13:59 Intake Total Output Total Balance Weight Intake & Output: Intake & Output 02/28/22 03/01/22 03/01/22 22:59 05:59 13:59 Intake Total Output Total Balance Weight Intake: IV Sodium Chloride 0.9% 1,000 ml @ 125 mls/hr IV .Q8H ONE Rx#: [id number] Oral IV - Manual Only Output: Urine Catheter Amount Other: Urine Appearance Uretheral (Rizzo) Urine Color Uretheral (Rizzo) Urine Odor Uretheral (Rizzo) Exam: General: Awake, no acute distress, obesity Eyes/N/T: EOMI, , Head/Neck: neck supple, CV: irregular, No murmurs, Pulm: subtle rhonchi, no wheezing Abd: soft, nontender, +BS x4 Ext: no clubbing/cyanosis/edema, right lower extremity in dressings and splint Neuro: Alert and awake, no focal deficits, moves all extremities, Skin: warm/dry OBJ DATA Labs CBC & Chem 7: 03/01/22 05:46 03/01/22 05:46 Labs: Abnormal Lab Results 03/01/22 02/28/22 02/28/22 05:46 11:55 08:36 WBC RBC Hgb POC Hct MCHC RDW Immature Gran % (Auto) Neut % (Auto) Lymph % (Auto) Lymph # (Auto) Granite # (Auto) Immature Gran # Absolute Neutrophils POC pH 7.27 L POC pCO2 47.6 H 64.1 H* POC pO2 128 H POC HCO3 28.2 H 29.3 H POC Total CO2 30.0 H 31.0 H POC ABG Base Excess ABG Lactic Acid Hgb O2 Saturation 99.0 H POC Sodium Potassium 5.2 H Anion Gap POC BUN BUN 25 H Creatinine Glucose 183 H POC Glucose Uric Acid 9.7 H Total Bilirubin Direct Bilirubin GGT 42 H AST 35 H Alkaline Phosphatase Lactate Dehydrogenase 326 H Albumin 3.1 L Albumin/Globulin Ratio 0.9 L 02/28/22 02/28/22 02/27/22 05:30 05:30 14:17 WBC 12.4 H RBC 3.52 L Hgb 10.5 L POC Hct MCHC 30.4 L RDW 15.4 H Immature Gran % (Auto) 0.8 H Neut % (Auto) 79.9 H Lymph % (Auto) 8.4 L Lymph # (Auto) 1.04 L Granite # (Auto) 1.22 H Immature Gran # 0.10 H Absolute Neutrophils 9.89 H POC pH 7.25 L POC pCO2 70.8 H* POC pO2 76 L POC HCO3 31.0 H POC Total CO2 33.0 H POC ABG Base Excess 4.0 H ABG Lactic Acid 0.4 L Hgb O2 Saturation 92.0 L POC Sodium Potassium Anion Gap 7.0 L POC BUN BUN Creatinine Glucose 170 H POC Glucose Uric Acid 11.0 H Total Bilirubin 1.1 H Direct Bilirubin 0.5 H GGT 40 H AST Alkaline Phosphatase Lactate Dehydrogenase Albumin Albumin/Globulin Ratio 02/27/22 02/27/22 02/27/22 12:42 10:17 09:39 WBC RBC Hgb POC Hct 32.0 L MCHC RDW Immature Gran % (Auto) Neut % (Auto) Lymph % (Auto) Lymph # (Auto) Granite # (Auto) Immature Gran # Absolute Neutrophils POC pH 7.22 L POC pCO2 71.9 H* POC pO2 76 L POC HCO3 29.7 H POC Total CO2 32.0 H POC ABG Base Excess ABG Lactic Acid Hgb O2 Saturation 91.0 L POC Sodium 146 H Potassium 5.3 H Anion Gap POC BUN 26 H BUN 24 H Creatinine 1.2 H Glucose 185 H POC Glucose 139 H Uric Acid Total Bilirubin Direct Bilirubin GGT AST Alkaline Phosphatase 124 H Lactate Dehydrogenase Albumin Albumin/Globulin Ratio 02/27/22 02/27/22 02/27/22 09:17 06:26 06:26 WBC 11.8 H RBC 3.53 L Hgb 10.4 L 11.1 L POC Hct MCHC 30.1 L 30.3 L RDW 15.6 H 15.5 H Immature Gran % (Auto) 0.6 H 0.8 H Neut % (Auto) 82.9 H Lymph % (Auto) 10.8 L 14.1 L Lymph # (Auto) 1.17 L Granite # (Auto) 1.15 H Immature Gran # 0.07 H 0.09 H Absolute Neutrophils 8.95 H 8.66 H POC pH POC pCO2 POC pO2 POC HCO3 POC Total CO2 POC ABG Base Excess ABG Lactic Acid Hgb O2 Saturation POC Sodium Potassium 5.5 H Anion Gap POC BUN BUN Creatinine 1.2 H Glucose 165 H POC Glucose Uric Acid 12.2 H Total Bilirubin Direct Bilirubin GGT 39 H AST Alkaline Phosphatase 131 H Lactate Dehydrogenase Albumin Albumin/Globulin Ratio Meds: Medications Hydrocodone Bitart/Acetaminophen (Hydrocodone/Apap 5/325mg Tablet) 1 tab PO Q4HP PRN; Protocol PRN Reason: Per Pain Protocol Last Admin: 02/28/22 18:59 Dose: 1 tab Albuterol/Ipratropium (Ipratropium/Albuterol 3 Ml Ampul.Neb) 3 ml NEB Q4HP PRN PRN Reason: Shortness Of Breath Last Admin: 02/28/22 18:34 Dose: 3 ml Amitriptyline HCl (Amitriptyline 25 Mg Tablet) 25 mg PO HS [facility] Last Admin: 02/28/22 20:41 Dose: 25 mg Atorvastatin Calcium (Atorvastatin 40 Mg Tablet) 40 mg PO HS [facility] Last Admin: 02/28/22 20:42 Dose: 40 mg Baclofen (Baclofen 10 Mg Tablet) 10 mg PO TIDP PRN PRN Reason: Muscle Spasm Last Admin: 02/28/22 21:09 Dose: 10 mg Dextrose (Dextrose 50% 50 Ml Vial) 0 ml IV UD PRN PRN Reason: Per Sliding Scale Diagnostic Test (Pha) (Accu-Chek 1 Each Strip) 1 each FS ACHS [facility] Last Admin: 03/01/22 06:59 Dose: 1 each Digoxin (Digoxin 125 Mcg Tablet) 125 mcg PO QDAY [facility] Last Admin: 02/28/22 11:14 Dose: Not Given Diltiazem HCl (Diltiazem 180 Mg Cap.Xl.24h) 180 mg PO QDAY [facility] Last Admin: 02/28/22 11:14 Dose: Not Given Docusate Sodium (Docusate Sodium 100 Mg Capsule) 100 mg PO BID [facility] Last Admin: 02/28/22 20:41 Dose: 100 mg Gabapentin (Gabapentin 100 Mg Capsule) 100 mg PO TID [facility] Last Admin: 02/28/22 20:42 Dose: 100 mg Glucose (Dextrose 31 Gm Oral.Susp) 15 gm PO PRN PRN PRN Reason: Hypoglycemia Potassium Chloride 40 meq/ (Dextrose) 520 mls @ 130 mls/hr IV UD PRN PRN Reason: Potassium < 3 Magnesium Sulfate (Magnesium Sulfate) 2 gm in 50 mls @ 50 mls/hr IV UD PRN PRN Reason: Magnesium </= 1.6 Acetaminophen (Ofirmev) 1,000 mg in 100 mls @ 200 mls/hr IV Q6HP PRN; Protocol PRN Reason: Pain Last Admin: 03/01/22 07:09 Dose: 200 mls/hr Diltiazem HCl 125 mg/ Dextrose 125 mls @ 5 mls/hr IV Q12HP PRN; Protocol PRN Reason: Tachyarrhythmias Insulin Human Lispro (Insulin Lispro 1 Unit/0.01 Ml Unit) 0 unit SQ ACHS [facility]; Protocol Last Admin: 02/28/22 21:20 Dose: 8 units Lisinopril (Lisinopril 10 Mg Tablet) 10 mg PO DAILY [facility] Last Admin: 02/28/22 11:15 Dose: Not Given Metoprolol Succinate (Metoprolol Succinate 50 Mg Tab.Xl.24h) 100 mg PO BID [facility] Last Admin: 02/28/22 20:41 Dose: 100 mg Metoprolol Tartrate (Metoprolol Tartrate 5 Mg/5 Ml Vial) 5 mg IV Q2HP PRN PRN Reason: Tachyarrhythmias HR>110 Last Admin: 02/28/22 16:51 Dose: 5 mg Nitroglycerin (Nitroglycerin 0.4 Mg Tab.Subl) 0.4 mg SL Q5M PRN PRN Reason: Chest Pain Last Admin: 02/27/22 09:25 Dose: 0.4 mg Omeprazole (Omeprazole 20 Mg Capsule) 40 mg PO QDAY [facility] Last Admin: 02/28/22 11:15 Dose: Not Given Ondansetron HCl (Ondansetron 4 Mg/2 Ml Vial) 4 mg IV Q4HP PRN PRN Reason: Nausea And Vomiting Last Admin: 02/26/22 16:48 Dose: 4 mg Oxybutynin Chloride (Oxybutynin Chloride 5 Mg Tablet) 5 mg PO BID [facility] Last Admin: 02/28/22 20:41 Dose: 5 mg (Cyclosporine [ (Restasis] 0.05 %) 1 dose OP DAILY [facility] Last Admin: 02/28/22 11:15 Dose: Not Given Polyethylene Glycol (Polyethylene Glycol 3350 17 Gm Packet) 17 gm PO DAILYP PRN PRN Reason: Constipation Potassium Chloride (Potassium Chloride 20 Meq Tablet) 40 meq PO UD PRN PRN Reason: Potssium is 3-3.5 Potassium Chloride (Potassium Chloride 20 Meq Tablet) 40 meq PO UD PRN PRN Reason: Potassium < 3 Ropinirole HCl (Ropinirole 1 Mg Tablet) 4 mg PO QDAY [facility] Last Admin: 02/28/22 21:35 Dose: 4 mg Senna (Sennosides 1 Tablet) 2 tab PO DAILYP PRN PRN Reason: Constipation Last Admin: 02/27/22 15:31 Dose: 2 tab Sodium Chloride (0.9 % Sodium Chloride 10 Ml Syringe) 10 ml IV Q8 [facility] Last Admin: 03/01/22 05:43 Dose: 10 ml Sodium Chloride (0.9 % Sodium Chloride 10 Ml Syringe) 10 ml IV Q8 [facility] Last Admin: 02/28/22 23:23 Dose: 10 ml A/P Narrative A/P Narrative: A: *AFib w/RVR, chronic: On digoxin/diltiazem/Xarelto -improved *Hypercapnia: suspect from sedation. resolved -s/p bipap, *Right ankle fracture: s/p ORIF (02/28) *JACKLYN on CKD: improved *h/o CAD: on statin/rivaroxaban -SPECT in January with good EF and was low risk study *Hyperkalemia, mild: treat and follow-up -improved *Volume depletion: improved *JACKLYN on CKD III: *DM: *Obesity: BMI *CKD II: *Anemia, chronic: *HTN/HLD: on dilt/bb/acei *GERD: P: -ankle per ortho -pt/ot -f/u electrolytes -check Dig level -Continue home digoxin/BB/diltiazem, hold acei for hyperkalemia/jacklyn and soft BP -IV tylenol for pain, pt extremely sensitive to narcotics -SSI, hold metformin for now -PT/OT -ppx: SCDs and postop Xarelto when okay with surgery / home ppi Time Spent With Patient Time: Total time spent is greater than 50% in coordination of care (as documented) at patient's floor/unit and/or counseling patient: Total time spent with greater than 50% in coordination of care (as documented) at patient's floor/unit and/or counseling patient:: 25 - 35 minutes QUALITY VTE Deep Vein Thrombosis/Pulmonary Embolism Present on Admission: No
[2022-03-01] MEDS: DIGOXIN 125 MCG TABLET PO SCH (08:02)
[2022-03-01] MEDS: GABAPENTIN 100 MG CAPSULE PO SCH ×3 (08:02→20:18)
[2022-03-01] MEDS: LISINOPRIL 10 MG TABLET PO SCH (08:02)
[2022-03-01] MEDS: OXYBUTYNIN CHLORIDE 5 MG TABLET PO SCH ×2 (08:02→20:18)
[2022-03-01] MEDS: DOCUSATE SODIUM 100 MG CAPSULE PO SCH ×2 (08:02→20:18)
[2022-03-01] MEDS: METOPROLOL SUCCINATE 50 MG TAB.XL.24H PO SCH ×2 (08:03→20:19)
[2022-03-01] MEDS: OMEPRAZOLE 20 MG CAPSULE PO SCH (08:03)
[2022-03-01] MEDS: INSULIN LISPRO 1 UNIT/0.01 ML UNIT SQ SCH ×4 (08:03→20:20)
[2022-03-01] MEDS: DILTIAZEM 180 MG CAP.XL.24H PO SCH (08:03)
[2022-03-01 08:40] LABS: Digoxin 0.9 ng/mL
[2022-03-01] MEDS: rOPINIRole 1 MG TABLET PO SCH ×2 (10:13→20:19)
[2022-03-01] MEDS: CYCLOSPORINE 0.05% OP SCH (10:13)
[2022-03-01] MEDS: HYDROcodone/APAP 5/325MG TABLET PO PRN ×3 (12:32→22:59)
[2022-03-01 14:00] LABS: Anisocytosis 1+ (None Seen); Band Neutrophils % 11 % (0-10); Hypochromasia 1+ (None Seen); Lymphocytes % 4 % (15-49); Macrocytosis 1+ (None Seen); Monocytes % (Manual) 5 % (1-12); Platelet Estimate NORMAL (Normal); RBC Morphology ABNORMAL (Normal); Segmented Neutrophils % 80 % (38-78)
[2022-03-01] MEDS ORDERED: ENOXAPARIN 40 MG/0.4 ML SYRINGE SQ ONE (18:45)
[2022-03-01] MEDS: BACLOFEN 10 MG TABLET PO PRN ×3 (19:10→21:41)
[2022-03-01] MEDS ORDERED: ASPIRIN 81 MG TAB.CHEW CHEWED ONE (19:53)
[2022-03-01] MEDS: ATORVASTATIN 40 MG TABLET PO SCH (20:18)
[2022-03-01] MEDS: AMITRIPTYLINE 25 MG TABLET PO SCH (20:19)
[2022-03-02] MEDS: 0.9 % SODIUM CHLORIDE 10 ML SYRINGE IV SCH ×6 (05:22→21:20)
--- NOTE | 2022-03-02 08:06 | Operative Note ---
DATE OF OPERATION: 02/28/2022 DATE OF PROCEDURE: 02/28/2022 PREOPERATIVE DIAGNOSIS: Right ankle fracture dislocation. POSTOPERATIVE DIAGNOSIS: Right ankle fracture dislocation. PROCEDURE: Right ankle open reduction and internal fixation with lateral plate syndesmosis screw as well as medial open reduction and internal fixation. Image was used. SURGEON: Allan Munoz M.D. GLOBAL ACCOUNT EXECUTIVE: Arun Arechiga PA-C. The expertise and technical skill of this provider were required throughout the case. The PA assisted with preoperative coordination, intraoperative retraction, wound closure, and dressing and splint application, as well as postoperative documentation and care coordination. ANESTHESIA: General LMA anesthesia. COMPLICATIONS: None. DESCRIPTION OF PROCEDURE: The patient was brought to the operating room, put to sleep with general LMA anesthesia. Once asleep, the patient had the right leg sterilely prepped and draped in the usual sterile fashion. A timeout was performed confirming this as the operative site by initials, consent form, and x-rays. Preoperative antibiotics had been given. The leg was exsanguinated and the tourniquet was inflated to 250 pounds of pressure. We then made an incision laterally and reduced the comminuted fibula. A long anatomic plate from [place] was placed, keeping the foot at neutral and reducing the joint. We placed one screw distal and 1 proximal and then identified using image that it was reduced anatomically. With this, we placed four additional screws above the fracture, an interfrag screw, which measured 20 mm; one nonlocking screw, which measured 12 mm to reduce the plate and the other 5 screws distally were locking screws that locked into the plate. We placed a nonlocking 38 mm syndesmosis screw to help reduce the fracture and the syndesmosis joint that had been ruptured. Once this was in place, well reduced, we irrigated thoroughly and then made an incision medially. This was about a 2-inch incision, trying avoid a fracture blister that had developed. We identified the fracture site, washed out the mortise and then reduced the fracture. We placed two K-wires and then placed two screws medially, keeping the ankle at 90 degrees at neutral position and then we placed 55 mm screws, partially-threaded. These fit very nicely with good purchase overall. We irrigated thoroughly and then closed the wound with 2-0 Vicryl medially and laterally and then 3-0 nylon and 4-0 nylon and then eva to reinforce the repair. A sterile bandage was applied. A postop boot was applied. The tourniquet time 45 minutes. There were no complications. RBH:delano Job ID: [id number] Doc ID: [id number] Allan Munoz MD
[2022-03-02 08:13] LABS: ALT/SGPT 15 U/L (<40); AST/SGOT 27 U/L (<32); Albumin 3.3 gm/dL (3.2-5.2); Alkaline Phosphatase 121 U/L (39-117); Basophils # (Auto) 0.02 K/mcL (0.00-0.30); Basophils % (Auto) 0.2 % (0.0-2.0); Bilirubin,Direct < 0.2 mg/dL (0-0.3); Bilirubin,Total 0.4 mg/dL (0.1-1.0); Blood Urea Nitrogen 25 mg/dL (8-23); Calcium 9.3 mg/dL (8.6-10.4); Carbon Dioxide 31 mmol/L (22-30); Chloride 104 mmol/L (96-108); Eosinophils # (Auto) 0.07 K/mcL (0.00-0.70); Eosinophils % (Auto) 0.6 % (0.0-7.0); Globulin 3.3 gm/dL (2.2-3.7); Glomerular Filtration Rate 63; Glucose 155 mg/dL (70-105); Hematocrit 34.3 % (34.1-44.9); Hemoglobin 10.2 g/dL (11.2-15.7); Lactate Dehydrogenase 184 U/L (135-225); Lymphocytes % (Auto) 11.7 % (15.5-49.0); Mean Cell Volume 97.4 fL (80.0-100.0); Mean Corpuscular HGB Conc 29.7 g/dL (31.0-36.0); Mean Platelet Volume 11.5 fL (8.8-12.5); Monocytes % (Auto) 9.2 % (1.0-12.0); Neutrophils % (Auto) 77.6 % (38.0-78.0); Phosphorous 2.8 mg/dL (2.5-4.5); Platelet Count 216 K/mcL (140-440); RBC 3.52 M/mcL (3.59-5.38); Red Cell Distribution Width 14.9 % (11.5-14.5); Triglycerides 121 mg/dL (<150); Uric Acid 8.6 mg/dL (2.5-8.0)
[2022-03-02] MEDS: INSULIN LISPRO 1 UNIT/0.01 ML UNIT SQ SCH ×4 (08:15→21:20)
[2022-03-02] MEDS: METOPROLOL SUCCINATE 50 MG TAB.XL.24H PO SCH ×2 (08:55→21:20)
[2022-03-02] MEDS: DILTIAZEM 180 MG CAP.XL.24H PO SCH (08:55)
[2022-03-02] MEDS: LISINOPRIL 5 MG TABLET PO SCH (08:55)
[2022-03-02] MEDS: DOCUSATE SODIUM 100 MG CAPSULE PO SCH ×2 (08:55→21:19)
[2022-03-02] MEDS: OMEPRAZOLE 20 MG CAPSULE PO SCH (08:55)
[2022-03-02] MEDS: GABAPENTIN 100 MG CAPSULE PO SCH ×3 (08:55→21:19)
[2022-03-02] MEDS: DIGOXIN 125 MCG TABLET PO SCH (08:55)
[2022-03-02] MEDS: OXYBUTYNIN CHLORIDE 5 MG TABLET PO SCH ×2 (08:55→21:19)
[2022-03-02] MEDS: HYDROcodone/APAP 5/325MG TABLET PO PRN (08:56)
[2022-03-02] MEDS: CYCLOSPORINE 0.05% OP SCH (08:56)
[2022-03-02] MEDS: ACETAMINOPHEN 1,000 MG/100 ML BAG IV PRN ×2 (09:35→15:43)
[2022-03-02] MEDS: IPRATROPIUM/ALBUTEROL 3 ML AMPUL.NEB NEB PRN (10:58)
--- NOTE | 2022-03-02 13:08 | Internal Med Progress Note ---
SUBJECTIVE Subjective Patient information: Note initiated : 03/02/22 at 1:06 pm Service Date, if different from initiated Date: [] Patient: Joelle Almazan 71 y/o F admitted on 02/26/22 for Ankle Fracture-JACKLYN. Chief Complaint: [] Interval history: 03/02 Weaned down to 1 L/min nasal cannula oxygen, atrial fibrillation well controlled. Discussed with luiz Valladares to resume home Xarelto. Resumed home torsemide, discontinued Rizzo catheter. Case management working on placement. Physical exam Head: Atraumatic, normal inspection. Eyes: normal appearance, no scleral icterus. Neck: full ROM Respiratory: 1 L/min nasal cannula oxygen, no respiratory distress. Cardiovascular: normal rate and rhythm, S1, S2. GI/Abdominal: soft, nontender, no guarding. Extremities: Right ankle tenderness, surgical incision covered with clean bandage. Neurological: CN II-XII intact, intact motor, intact sensation. Psychiatric: normal mood. Skin: warm, normal color Constitutional Vitals: Vital Signs Temp Pulse Resp BP Pulse Ox O2 Del Method O2 Flow Rate 97.4 F 72 17 120/87 98 1 03/02/22 12:01 03/02/22 12:01 03/02/22 12:01 03/02/22 12:01 03/02/22 12:01 03/02/22 12:01 03/02/22 12:01 Period Temp Pulse Resp BP Sys/Peralta Pulse Ox O2 Del Method O2 Flow Rate Last 24 Hr 97.3 F-98.2 F 62-92 13-97 87-143/42-99 86-100 Nasal Cannula- Room Air 0-2 Intake and Output 03/01/22 03/02/22 03/02/22 21:59 05:59 13:59 Intake Total 1320 568 340 Output Total 650 1650 400 Balance 670 -1082 -60 Weight 98.033 kg Intake & Output: Intake & Output 03/01/22 03/02/22 03/02/22 21:59 05:59 13:59 Intake Total 1320 568 340 Output Total 650 1650 400 Balance 670 -1082 -60 Weight 98.033 kg Intake: IV 100 100 Oral 1220 568 240 Output: Urine Catheter Amount 650 1650 400 Other: Meal Breakfast Percent of Meal Consumed 100% Feeding Ability Independent Urine Appearance Clear Clear Clear Uretheral (Rizzo) Clear Urine Color Dark Yellow Dark Yellow Bright Yellow Uretheral (Rizzo) Dark Yellow Urine Odor Normal Normal Stool Size Small Stool Color Brown Stool Consistency Soft OBJ DATA Labs CBC & Chem 7: 03/02/22 05:23 03/02/22 05:23 Labs: Abnormal Lab Results 03/02/22 03/02/22 03/01/22 05:23 05:23 05:46 WBC 12.0 H RBC 3.52 L Hgb 10.2 L Hct MCHC 29.7 L RDW 14.9 H Immature Gran % (Auto) 0.7 H Neut % (Auto) Lymph % (Auto) 11.7 L Lymph # (Auto) 1.40 L Kimball # (Auto) 1.10 H Seg Neutrophils % Band Neutrophils % Lymphocytes % Immature Gran # 0.08 H Absolute Neutrophils 9.28 H RBC Morphology Hypochromasia Anisocytosis Macrocytosis POC pH POC pCO2 POC pO2 POC HCO3 POC Total CO2 POC ABG Base Excess ABG Lactic Acid Hgb O2 Saturation Potassium 5.2 H Carbon Dioxide 31 H Anion Gap 6.0 L BUN 25 H 25 H Glucose 155 H 183 H Uric Acid 8.6 H 9.7 H Total Bilirubin Direct Bilirubin GGT 46 H 42 H AST 35 H Alkaline Phosphatase 121 H Lactate Dehydrogenase 326 H Albumin 3.1 L Albumin/Globulin Ratio 0.9 L 03/01/22 02/28/22 02/28/22 05:46 11:55 08:36 WBC 12.5 H RBC 3.27 L Hgb 9.9 L Hct 32.5 L MCHC 30.5 L RDW 14.7 H Immature Gran % (Auto) Neut % (Auto) Lymph % (Auto) Lymph # (Auto) [place] # (Auto) Seg Neutrophils % 80 H Band Neutrophils % 11 H Lymphocytes % 4 L Immature Gran # Absolute Neutrophils RBC Morphology Abnormal A Hypochromasia 1+ A Anisocytosis 1+ A Macrocytosis 1+ A POC pH 7.27 L POC pCO2 47.6 H 64.1 H* POC pO2 128 H POC HCO3 28.2 H 29.3 H POC Total CO2 30.0 H 31.0 H POC ABG Base Excess ABG Lactic Acid Hgb O2 Saturation 99.0 H Potassium Carbon Dioxide Anion Gap BUN Glucose Uric Acid Total Bilirubin Direct Bilirubin GGT AST Alkaline Phosphatase Lactate Dehydrogenase Albumin Albumin/Globulin Ratio 02/28/22 02/28/22 02/27/22 05:30 05:30 14:17 WBC 12.4 H RBC 3.52 L Hgb 10.5 L Hct MCHC 30.4 L RDW 15.4 H Immature Gran % (Auto) 0.8 H Neut % (Auto) 79.9 H Lymph % (Auto) 8.4 L Lymph # (Auto) 1.04 L Kimball # (Auto) 1.22 H Seg Neutrophils % Band Neutrophils % Lymphocytes % Immature Gran # 0.10 H Absolute Neutrophils 9.89 H RBC Morphology Hypochromasia Anisocytosis Macrocytosis POC pH 7.25 L POC pCO2 70.8 H* POC pO2 76 L POC HCO3 31.0 H POC Total CO2 33.0 H POC ABG Base Excess 4.0 H ABG Lactic Acid 0.4 L Hgb O2 Saturation 92.0 L Potassium Carbon Dioxide Anion Gap 7.0 L BUN Glucose 170 H Uric Acid 11.0 H Total Bilirubin 1.1 H Direct Bilirubin 0.5 H GGT 40 H AST Alkaline Phosphatase Lactate Dehydrogenase Albumin Albumin/Globulin Ratio Meds: Medications Hydrocodone Bitart/Acetaminophen (Hydrocodone/Apap 5/325mg Tablet) 1 tab PO Q4HP PRN; Protocol PRN Reason: Per Pain Protocol Last Admin: 03/02/22 08:56 Dose: 1 tab Albuterol/Ipratropium (Ipratropium/Albuterol 3 Ml Ampul.Neb) 3 ml NEB Q4HP PRN PRN Reason: Shortness Of Breath Last Admin: 03/02/22 10:58 Dose: 3 ml Amitriptyline HCl (Amitriptyline 25 Mg Tablet) 25 mg PO HS [facility] Last Admin: 03/01/22 20:19 Dose: 25 mg Atorvastatin Calcium (Atorvastatin 40 Mg Tablet) 40 mg PO HS [facility] Last Admin: 03/01/22 20:18 Dose: 40 mg Baclofen (Baclofen 10 Mg Tablet) 10 mg PO TIDP PRN PRN Reason: Muscle Spasm Last Admin: 03/01/22 21:41 Dose: 10 mg Dextrose (Dextrose 50% 50 Ml Vial) 0 ml IV UD PRN PRN Reason: Per Sliding Scale Diagnostic Test (Pha) (Accu-Chek 1 Each Strip) 1 each FS ACHS [facility] Last Admin: 03/02/22 08:00 Dose: 1 each Digoxin (Digoxin 125 Mcg Tablet) 125 mcg PO QDAY [facility] Last Admin: 03/02/22 08:55 Dose: 125 mcg Diltiazem HCl (Diltiazem 180 Mg Cap.Xl.24h) 180 mg PO QDAY [facility] Last Admin: 03/02/22 08:55 Dose: 180 mg Docusate Sodium (Docusate Sodium 100 Mg Capsule) 100 mg PO BID [facility] Last Admin: 03/02/22 08:55 Dose: 100 mg Gabapentin (Gabapentin 100 Mg Capsule) 100 mg PO TID [facility] Last Admin: 03/02/22 08:55 Dose: 100 mg Glucose (Dextrose 31 Gm Oral.Susp) 15 gm PO PRN PRN PRN Reason: Hypoglycemia Potassium Chloride 40 meq/ (Dextrose) 520 mls @ 130 mls/hr IV UD PRN PRN Reason: Potassium < 3 Magnesium Sulfate (Magnesium Sulfate) 2 gm in 50 mls @ 50 mls/hr IV UD PRN PRN Reason: Magnesium </= 1.6 Acetaminophen (Ofirmev) 1,000 mg in 100 mls @ 200 mls/hr IV Q6HP PRN; Protocol PRN Reason: Pain Last Infusion: 03/02/22 10:05 Dose: Infused Insulin Human Lispro (Insulin Lispro 1 Unit/0.01 Ml Unit) 0 unit SQ ACHS [facility]; Protocol Last Admin: 03/02/22 08:15 Dose: Not Given Lisinopril (Lisinopril 5 Mg Tablet) 5 mg PO DAILY [facility] Last Admin: 03/02/22 08:55 Dose: 5 mg Metoprolol Succinate (Metoprolol Succinate 50 Mg Tab.Xl.24h) 100 mg PO BID [facility] Last Admin: 03/02/22 08:55 Dose: 100 mg Metoprolol Tartrate (Metoprolol Tartrate 5 Mg/5 Ml Vial) 5 mg IV Q2HP PRN PRN Reason: Tachyarrhythmias HR>110 Last Admin: 02/28/22 16:51 Dose: 5 mg Nitroglycerin (Nitroglycerin 0.4 Mg Tab.Subl) 0.4 mg SL Q5M PRN PRN Reason: Chest Pain Last Admin: 02/27/22 09:25 Dose: 0.4 mg Omeprazole (Omeprazole 20 Mg Capsule) 40 mg PO QDAY [facility] Last Admin: 03/02/22 08:55 Dose: 40 mg Ondansetron HCl (Ondansetron 4 Mg/2 Ml Vial) 4 mg IV Q4HP PRN PRN Reason: Nausea And Vomiting Last Admin: 02/26/22 16:48 Dose: 4 mg Oxybutynin Chloride (Oxybutynin Chloride 5 Mg Tablet) 5 mg PO BID [facility] Last Admin: 03/02/22 08:55 Dose: 5 mg (Cyclosporine [ (Restasis] 0.05 %) 1 dose OP DAILY [facility] Last Admin: 03/02/22 08:56 Dose: Not Given Polyethylene Glycol (Polyethylene Glycol 3350 17 Gm Packet) 17 gm PO DAILYP PRN PRN Reason: Constipation Potassium Chloride (Potassium Chloride 20 Meq Tablet) 40 meq PO UD PRN PRN Reason: Potssium is 3-3.5 Potassium Chloride (Potassium Chloride 20 Meq Tablet) 40 meq PO UD PRN PRN Reason: Potassium < 3 Rivaroxaban (Rivaroxaban 20 Mg Tablet) 20 mg PO QPMCC [facility] Ropinirole HCl (Ropinirole 1 Mg Tablet) 4 mg PO HS [facility] Last Admin: 03/01/22 20:19 Dose: 4 mg Senna (Sennosides 1 Tablet) 2 tab PO DAILYP PRN PRN Reason: Constipation Last Admin: 02/27/22 15:31 Dose: 2 tab Sodium Chloride (0.9 % Sodium Chloride 10 Ml Syringe) 10 ml IV Q8 [facility] Last Admin: 03/02/22 05:22 Dose: 10 ml Sodium Chloride (0.9 % Sodium Chloride 10 Ml Syringe) 10 ml IV Q8 [facility] Last Admin: 03/02/22 05:22 Dose: 10 ml A/P Narrative A/P Narrative: A: *Right ankle fracture: s/p ORIF (02/28) *Atrial fibrillation, rate controlled *Resolved JACKLYN on CKD *h/o CAD: on statin/rivaroxaban -SPECT in January with good EF and was low risk study *Resolved hyperkalemia *DM: *Obesity: BMI *CKD II: *Anemia, chronic: *HTN/HLD: on dilt/bb/acei *GERD: P: -ankle per ortho -pt/ot -f/u electrolytes -Resume home Xarelto and torsemide. -Continue home digoxin/BB/diltiazem, hold acei for recent hyperkalemia/jacklyn and soft BP -IV tylenol for pain, pt extremely sensitive to narcotics -SSI, hold metformin for now -PT/OT -DVT prophylaxis: Xarelto -CODE STATUS: Full -Disposition: SNF pending placement Time Spent With Patient Time: Total time spent is greater than 50% in coordination of care (as documented) at patient's floor/unit and/or counseling patient: QUALITY VTE Deep Vein Thrombosis/Pulmonary Embolism Present on Admission: No
[2022-03-02] MEDS: TORSEMIDE 10 MG TABLET PO SCH (13:43)
[2022-03-02] MEDS: RIVAROXABAN 20 MG TABLET PO SCH (16:51)
[2022-03-02] MEDS: traMADol 50 MG TABLET PO PRN (18:47)
[2022-03-02] MEDS: rOPINIRole 1 MG TABLET PO SCH (21:16)
[2022-03-02] MEDS: AMITRIPTYLINE 25 MG TABLET PO SCH (21:19)
[2022-03-02] MEDS: BACLOFEN 10 MG TABLET PO PRN (21:19)
[2022-03-02] MEDS: ATORVASTATIN 40 MG TABLET PO SCH (21:19)
[2022-03-03] MEDS: traMADol 50 MG TABLET PO PRN ×4 (00:58→20:37)
[2022-03-03] MEDS: ACETAMINOPHEN 1,000 MG/100 ML BAG IV PRN ×3 (03:39→23:00)
[2022-03-03] MEDS: 0.9 % SODIUM CHLORIDE 10 ML SYRINGE IV SCH ×5 (05:58→20:38)
[2022-03-03] MEDS: INSULIN LISPRO 1 UNIT/0.01 ML UNIT SQ SCH ×4 (08:01→20:52)
[2022-03-03] MEDS: GABAPENTIN 100 MG CAPSULE PO SCH ×3 (09:40→20:37)
[2022-03-03] MEDS: DOCUSATE SODIUM 100 MG CAPSULE PO SCH ×2 (09:41→20:37)
[2022-03-03] MEDS: LISINOPRIL 5 MG TABLET PO SCH (09:41)
[2022-03-03] MEDS: OXYBUTYNIN CHLORIDE 5 MG TABLET PO SCH ×2 (09:41→20:37)
[2022-03-03] MEDS: OMEPRAZOLE 20 MG CAPSULE PO SCH (09:41)
[2022-03-03] MEDS: TORSEMIDE 10 MG TABLET PO SCH (09:41)
[2022-03-03] MEDS: CYCLOSPORINE 0.05% OP SCH (09:41)
[2022-03-03] MEDS: METOPROLOL SUCCINATE 50 MG TAB.XL.24H PO SCH ×2 (10:08→20:38)
[2022-03-03] MEDS: DIGOXIN 125 MCG TABLET PO SCH (10:09)
[2022-03-03] MEDS: DILTIAZEM 180 MG CAP.XL.24H PO SCH (10:09)
--- NOTE | 2022-03-03 13:57 | Internal Med Progress Note ---
SUBJECTIVE Subjective Patient information: Note initiated : 03/03/22 at 1:55 pm Service Date, if different from initiated Date: [] Patient: Joelle Almazan 71 y/o F admitted on 02/26/22 for Ankle Fracture-JACKLYN. Chief Complaint: [] Interval history: 03/02 Weaned down to 1 L/min nasal cannula oxygen, atrial fibrillation well controlled. Discussed with luiz Valladares to resume home Xarelto. Resumed home torsemide, discontinued Rizzo catheter. Case management working on placement. 03/03 On room air, vitals stable. Pain control improved from yesterday. Case management working on placement. Physical exam Head: Atraumatic, normal inspection. Eyes: normal appearance, no scleral icterus. Neck: full ROM Respiratory: Room air, no respiratory distress. Cardiovascular: normal rate and rhythm, S1, S2. GI/Abdominal: soft, nontender, no guarding. Extremities: Right ankle tenderness, surgical incision covered with clean bandage. Neurological: CN II-XII intact, intact motor, intact sensation. Psychiatric: normal mood. Skin: warm, normal color Constitutional Vitals: Vital Signs Temp Pulse Resp BP Pulse Ox O2 Del Method O2 Flow Rate 97.1 F 77 18 125/80 94 0 03/03/22 12:01 03/03/22 12:01 03/03/22 12:01 03/03/22 12:01 03/03/22 12:01 03/03/22 12:01 03/03/22 12:01 Period Temp Pulse Resp BP Sys/Peralta Pulse Ox O2 Del Method O2 Flow Rate Last 24 Hr 96.8 F-98.0 F 61-88 14-26 103-145/57-96 85-100 Nasal Cannula- Room Air 0-2 Intake and Output 03/02/22 03/03/22 03/03/22 21:59 05:59 13:59 Intake Total 700 320 100 Output Total 1500 1725 2200 Balance -800 -1405 -2100 Weight 94.619 kg Intake & Output: Intake & Output 03/02/22 03/03/22 03/03/22 21:59 05:59 13:59 Intake Total 700 320 100 Output Total 1500 1725 2200 Balance -800 -1405 -2100 Weight 94.619 kg Intake: IV 100 100 100 Oral 600 220 Output: Void Amount 1500 1725 2200 # of times incontinent of urine 0 Other: Meal Dinner Percent of Meal Consumed 100% Feeding Ability Independent Urine Appearance Clear Clear Clear Urine Color Yellow Pale Yellow Pale Urine Odor Normal Strong Stool Size Small Stool Color Brown Stool Consistency Soft # Bowel Movements 0 1 # of times incontinent of 0 Bowels OBJ DATA Labs CBC & Chem 7: 03/02/22 05:23 03/02/22 05:23 Labs: Abnormal Lab Results 03/02/22 03/02/22 03/01/22 05:23 05:23 05:46 WBC 12.0 H RBC 3.52 L Hgb 10.2 L Hct MCHC 29.7 L RDW 14.9 H Immature Gran % (Auto) 0.7 H Lymph % (Auto) 11.7 L Lymph # (Auto) 1.[address] [facility] # (Auto) 1.10 H Seg Neutrophils % Band Neutrophils % Lymphocytes % Immature Gran # 0.08 H Absolute Neutrophils 9.28 H RBC Morphology Hypochromasia Anisocytosis Macrocytosis Potassium 5.2 H Carbon Dioxide 31 H Anion Gap 6.0 L BUN 25 H 25 H Glucose 155 H 183 H Uric Acid 8.6 H 9.7 H GGT 46 H 42 H AST 35 H Alkaline Phosphatase 121 H Lactate Dehydrogenase 326 H Albumin 3.1 L Albumin/Globulin Ratio 0.9 L 03/01/22 05:46 WBC 12.5 H RBC 3.27 L Hgb 9.9 L Hct 32.5 L MCHC 30.5 L RDW 14.7 H Immature Gran % (Auto) Lymph % (Auto) Lymph # (Auto) [facility] # (Auto) Seg Neutrophils % 80 H Band Neutrophils % 11 H Lymphocytes % 4 L Immature Gran # Absolute Neutrophils RBC Morphology Abnormal A Hypochromasia 1+ A Anisocytosis 1+ A Macrocytosis 1+ A Potassium Carbon Dioxide Anion Gap BUN Glucose Uric Acid GGT AST Alkaline Phosphatase Lactate Dehydrogenase Albumin Albumin/Globulin Ratio Meds: Medications Albuterol/Ipratropium (Ipratropium/Albuterol 3 Ml Ampul.Neb) 3 ml NEB Q4HP PRN PRN Reason: Shortness Of Breath Last Admin: 03/02/22 10:58 Dose: 3 ml Amitriptyline HCl (Amitriptyline 25 Mg Tablet) 25 mg PO HS [facility] Last Admin: 03/02/22 21:19 Dose: 25 mg Atorvastatin Calcium (Atorvastatin 40 Mg Tablet) 40 mg PO HS [facility] Last Admin: 03/02/22 21:19 Dose: 40 mg Baclofen (Baclofen 10 Mg Tablet) 10 mg PO TIDP PRN PRN Reason: Muscle Spasm Last Admin: 03/02/22 21:19 Dose: 10 mg Dextrose (Dextrose 50% 50 Ml Vial) 0 ml IV UD PRN PRN Reason: Per Sliding Scale Diagnostic Test (Pha) (Accu-Chek 1 Each Strip) 1 each FS ACHS [facility] Last Admin: 03/03/22 12:20 Dose: 1 each Digoxin (Digoxin 125 Mcg Tablet) 125 mcg PO QDAY [facility] Last Admin: 03/03/22 10:09 Dose: 125 mcg Diltiazem HCl (Diltiazem 180 Mg Cap.Xl.24h) 180 mg PO QDAY [facility] Last Admin: 03/03/22 10:09 Dose: 180 mg Docusate Sodium (Docusate Sodium 100 Mg Capsule) 100 mg PO BID [facility] Last Admin: 03/03/22 09:41 Dose: Not Given Gabapentin (Gabapentin 100 Mg Capsule) 100 mg PO TID [facility] Last Admin: 03/03/22 09:40 Dose: 100 mg Glucose (Dextrose 31 Gm Oral.Susp) 15 gm PO PRN PRN PRN Reason: Hypoglycemia Potassium Chloride 40 meq/ (Dextrose) 520 mls @ 130 mls/hr IV UD PRN PRN Reason: Potassium < 3 Magnesium Sulfate (Magnesium Sulfate) 2 gm in 50 mls @ 50 mls/hr IV UD PRN PRN Reason: Magnesium </= 1.6 Acetaminophen (Ofirmev) 1,000 mg in 100 mls @ 200 mls/hr IV Q6HP PRN; Protocol PRN Reason: Pain Last Infusion: 03/03/22 13:12 Dose: Infused Insulin Human Lispro (Insulin Lispro 1 Unit/0.01 Ml Unit) 0 unit SQ [facility]; Protocol Last Admin: 03/03/22 12:45 Dose: 2 units Lisinopril (Lisinopril 5 Mg Tablet) 5 mg PO DAILY [facility] Last Admin: 03/03/22 09:41 Dose: 5 mg Metoprolol Succinate (Metoprolol Succinate 50 Mg Tab.Xl.24h) 100 mg PO BID [facility] Last Admin: 03/03/22 10:08 Dose: 100 mg Metoprolol Tartrate (Metoprolol Tartrate 5 Mg/5 Ml Vial) 5 mg IV Q2HP PRN PRN Reason: Tachyarrhythmias HR>110 Last Admin: 02/28/22 16:51 Dose: 5 mg Nitroglycerin (Nitroglycerin 0.4 Mg Tab.Subl) 0.4 mg SL Q5M PRN PRN Reason: Chest Pain Last Admin: 02/27/22 09:25 Dose: 0.4 mg Omeprazole (Omeprazole 20 Mg Capsule) 40 mg PO QDAY [facility] Last Admin: 03/03/22 09:41 Dose: 40 mg Ondansetron HCl (Ondansetron 4 Mg/2 Ml Vial) 4 mg IV Q4HP PRN PRN Reason: Nausea And Vomiting Last Admin: 02/26/22 16:48 Dose: 4 mg Oxybutynin Chloride (Oxybutynin Chloride 5 Mg Tablet) 5 mg PO BID [facility] Last Admin: 03/03/22 09:41 Dose: 5 mg (Cyclosporine [ (Restasis] 0.05 %) 1 dose OP DAILY [facility] Last Admin: 03/03/22 09:41 Dose: Not Given Polyethylene Glycol (Polyethylene Glycol 3350 17 Gm Packet) 17 gm PO DAILYP PRN PRN Reason: Constipation Potassium Chloride (Potassium Chloride 20 Meq Tablet) 40 meq PO UD PRN PRN Reason: Potssium is 3-3.5 Potassium Chloride (Potassium Chloride 20 Meq Tablet) 40 meq PO UD PRN PRN Reason: Potassium < 3 Rivaroxaban (Rivaroxaban 20 Mg Tablet) 20 mg PO QPMCC [facility] Last Admin: 03/02/22 16:51 Dose: 20 mg Ropinirole HCl (Ropinirole 1 Mg Tablet) 4 mg PO HS [facility] Last Admin: 03/02/22 21:16 Dose: 4 mg Senna (Sennosides 1 Tablet) 2 tab PO DAILYP PRN PRN Reason: Constipation Last Admin: 02/27/22 15:31 Dose: 2 tab Sodium Chloride (0.9 % Sodium Chloride 10 Ml Syringe) 10 ml IV Q8 [facility] Last Admin: 03/03/22 12:45 Dose: 10 ml Sodium Chloride (0.9 % Sodium Chloride 10 Ml Syringe) 10 ml IV Q8 [facility] Last Admin: 03/03/22 13:12 Dose: 10 ml Torsemide (Torsemide 10 Mg Tablet) 10 mg PO QDAY [facility] Last Admin: 03/03/22 09:41 Dose: 10 mg Tramadol HCl (Tramadol 50 Mg Tablet) 50 - 100 mg PO Q6HP PRN; Protocol PRN Reason: Pain Last Admin: 03/03/22 08:01 Dose: 100 mg A/P Narrative A/P Narrative: A: *Right ankle fracture: s/p ORIF (02/28) *Atrial fibrillation, rate controlled *Resolved JACKLYN on CKD *h/o CAD: on statin/rivaroxaban -SPECT in January with good EF and was low risk study *Resolved hyperkalemia *DM: *Obesity: BMI *CKD II: *Anemia, chronic: *HTN/HLD: on dilt/bb/acei *GERD: P: -Awaiting placement. -Analgesics as needed. -Continue home Xarelto, torsemide, digoxin/BB/diltiazem, lisinopril. -SSI, hold metformin for now -PT/OT -DVT prophylaxis: Xarelto -CODE STATUS: Full -Disposition: SNF pending placement Time Spent With Patient Time: Total time spent is greater than 50% in coordination of care (as documented) at patient's floor/unit and/or counseling patient: QUALITY VTE Deep Vein Thrombosis/Pulmonary Embolism Present on Admission: No
[2022-03-03] MEDS: BACLOFEN 10 MG TABLET PO PRN (16:09)
[2022-03-03] MEDS: RIVAROXABAN 20 MG TABLET PO SCH (17:39)
[2022-03-03] MEDS: rOPINIRole 1 MG TABLET PO SCH (20:37)
[2022-03-03] MEDS: ATORVASTATIN 40 MG TABLET PO SCH (20:37)
[2022-03-03] MEDS: AMITRIPTYLINE 25 MG TABLET PO SCH (20:37)
[2022-03-04] MEDS: 0.9 % SODIUM CHLORIDE 10 ML SYRINGE IV SCH ×3 (00:24→05:04)
[2022-03-04] MEDS: INSULIN LISPRO 1 UNIT/0.01 ML UNIT SQ SCH ×2 (07:50→11:31)
--- NOTE | 2022-03-04 08:43 | Discharge Summary ---
Discharge Provider Provider IMPORTANT FOLLOW-UP INFORMATION FOR PCP: Patient information: Note initiated : 03/04/22 at 8:40 am Service Date, if different from initiated Date: [] Patient: Joelle Almazan 71 y/o F admitted on 02/26/22 for Ankle Fracture-JACKLYN. Chief Complaint: [] Date of admission: 02/26/22 14:10 Discharge date: 03/04/22 Primary care physician: Jake Suresh Consults: 02/26/22 Consult to Physician [CONS] Urgent Comment: Consulting Provider: Allan Munoz Reason For Exam: Physician to Consult 02/27/22 09:17 Consult to Physician [CONS] Stat Comment: Consulting Provider: Ponce Barrett Reason For Exam: Physician to Consult COURSE Hospital Course Hospital course: Ms. Almazan is a 71 year old F Presents to an outside facility after falling while walking up the stairs holding a cup of coffee, tripping. Immediate pain to the right ankle. She is found to have a severely comminuted right ankle fracture. Dr. Álvarez was contacted and patient was transferred to [facility]. Patient did have a drop in her blood pressures at the outside facility that was attributed to combination of volume depletion and 4mg IV morphine. Patient blood pressure responded to IV fluid boluses. 02/27 this morning she complained of ankle pain otherwise no other complaints. Testing was little elevated and her heart rate is elevated last night she got several doses of Lopressor. Ordered IV dig as she is n.p.o. if poorly controlled will start diltiazem drip. Later in the morning she developed left-sided chest pain under her left breast achy/pressure and nonradiating. EKG A. fib and difficult to read baseline but no ST elevation. Some nonspecific ST changes noted. Rate of 132. Troponin pending and chest x-ray pending. 02/28 Patient on BiPAP overnight for CO2 retention likely secondary to sedation. Patient seems to be externally really sensitive to narcotics. DC'd low-dose Dilaudid altogether. We will try IV Tylenol and as needed Quinton's if still uncontrolled. A. fib rate better controlled. Potassium improved as well as hyponatremia. 03/01 Patient on oxygen overnight. This morning I took her off oxygen and she satting low 90s and room air. She has poor effort on incentive spirometry and will continue working with her on that. Status post ORIF yesterday. A. fib rate controlled. Borderline elevated hyperkalemia. 03/02 Weaned down to 1 L/min nasal cannula oxygen, atrial fibrillation well controlled. Discussed with luiz Valladares to resume home Xarelto. Resumed home torsemide, discontinued Rizzo catheter. Case management working on placement. 03/03 On room air, vitals stable. Rate controlled atrial fibrillation. Pain control improved from yesterday patient tolerating Tylenol and tramadol well. Case management working on placement. 03/04 Discharged to low intensity rehab at assisted facility. Analgesics with Tylenol and tramadol, the patient seems to be tolerating this pain regimen well. The patient did not tolerate hydrocodone well and developed increasing oxygen requirement at nighttime and confusion with more potent opioids. Discharged on reduced dose lisinopril 5 mg daily which was the dose giving during the hospitalization, prior to admission the patient was receiving lisinopril 10 mg daily. Suspect the patient has obstructive sleep apnea, I recommend the patient have a formal sleep study after rehab. Follow-up with orthopedic surgery after discharge. Physical exam Head: Atraumatic, normal inspection. Eyes: normal appearance, no scleral icterus. Neck: full ROM Respiratory: Room air, no respiratory distress. Cardiovascular: normal rate and rhythm, S1, S2. GI/Abdominal: soft, nontender, no guarding. Extremities: Right ankle tenderness, surgical incision covered with clean bandage. Neurological: CN II-XII intact, intact motor, intact sensation. Psychiatric: normal mood. Skin: warm, normal color Discharge diagnosis: Right ankle fracture Secondary discharge diagnosis: Atrial fibrillation Acute on chronic kidney disease injury Time Spent with Patient Time attestation: Total time spent providing and/or coordinating discharge services: Time spent: Greater than 30 minutes EXAM Constitutional Vitals: Temp Pulse Resp BP Pulse Ox O2 Del Method O2 Flow Rate 97.5 F 66 20 133/84 100 1 03/04/22 08:09 03/04/22 04:01 03/04/22 08:09 03/04/22 08:09 03/04/22 08:09 03/04/22 08:09 03/04/22 08:09 Discharge Plan Patient/Caregiver Discharge Instructions Activity: ambulate only with your walker Diet: Regular Diet Activity Restrictions/Additional Instructions: partial weight bearing 25 percent Oxygen supplementation as needed Prescriptions: New tramadol 50 mg Tablet 50 mg PO Q6HP PRN (Reason: Pain) Qty: 7 0RF acetaminophen [Tylenol Extra Strength] 500 mg tablet 500 mg PO Q6H PRN (Reason: fever or pain) Qty: 30 0RF Continued oxybutynin chloride 5 mg tablet 5 mg PO BID metformin 500 mg tablet 500 mg PO BID magnesium 30 mg tablet 30 mg PO QDAY digoxin 125 mcg (0.125 mg) tablet 125 mcg PO QDAY amitriptyline 25 mg tablet 25 mg PO HS ropinirole 4 mg tablet 4 mg PO HS celecoxib 200 mg capsule 200 mg PO QDAY atorvastatin 40 mg tablet 40 mg PO HS diltiazem HCl 180 mg capsule,extended release 24hr 1 cap PO QDAY lisinopril 10 mg tablet 5 mg PO DAILY metoprolol succinate 100 mg tablet extended release 24 hr 1 tab PO BID omeprazole 40 mg capsule,delayed release(DR/EC) 1 cap PO QDAY Xarelto 20 mg tablet 1 tab PO DAILY cyclosporine [Restasis] 0.05 % dropperette 1 drp OPHTHALMIC (EYE) DAILY Label Comments: [NO ORIGINAL SIG] Ozempic 0.25 mg or 0.5 mg(2 mg/1.5 mL) pen injector 0.5 mg subcut WEEKLY gabapentin 100 mg capsule 1 cap PO TID baclofen 10 mg Tablet 10 mg PO TID PRN (Reason: Muscle Spasm) Rx Instructions: 1-2 tabs omega-3 fatty acids-vitamin E 1,000-5 mg-unit Capsule 1 cap PO DAILY calcium carbonate-vit D3-min 600 mg calcium- 400 unit Tablet 1 tab PO DAILY torsemide 10 mg tablet 1 tab PO QDAY Follow Up Plan Follow up with: Allan Munoz MD [Physician] - Patient Disposition: Xfer SNF Rehab Potential: Good I certify that the patient requires SNF services: No Overall status at discharge: patient is not back to baseline Discharge Orders: Discharge Order (Routine); Ordered 03/04/22 Ordered By: Nasim BOWMAN VTE Deep Vein Thrombosis/Pulmonary Embolism Present on Admission: No
[2022-03-04] MEDS: GABAPENTIN 100 MG CAPSULE PO SCH (08:54)
[2022-03-04] MEDS: DILTIAZEM 180 MG CAP.XL.24H PO SCH (08:55)
[2022-03-04] MEDS: DOCUSATE SODIUM 100 MG CAPSULE PO SCH (08:55)
[2022-03-04] MEDS: OMEPRAZOLE 20 MG CAPSULE PO SCH (08:56)
[2022-03-04] MEDS: METOPROLOL SUCCINATE 50 MG TAB.XL.24H PO SCH (09:00)
[2022-03-04] MEDS: LISINOPRIL 5 MG TABLET PO SCH (09:00)
[2022-03-04] MEDS: TORSEMIDE 10 MG TABLET PO SCH (09:01)
[2022-03-04] MEDS: DIGOXIN 125 MCG TABLET PO SCH (09:01)
[2022-03-04] MEDS: OXYBUTYNIN CHLORIDE 5 MG TABLET PO SCH (09:02)
[2022-03-04] MEDS: CYCLOSPORINE 0.05% OP SCH (09:10)
[2022-03-04] MEDS: traMADol 50 MG TABLET PO PRN (11:32)
== END 2022-03-04 13:10 | DRG 493 ==
LOC: MEDSUR 14:10 → ICU 02-27 09:45 → MEDSUR 03-03 17:52
PROVIDERS: ADMIT Internal Medicine; ATTEND Internal Medicine